=== PATIENT | female | born 1985 | race Caucasian/White ===

== ENCOUNTER 2016-11-22 22:01 | Emergency (ER) | payer SELFPAY ==
[2016-11-22] MEDS ORDERED: NS 0.9% 1000 ML* 1,000 ML IV ONE (22:36)
[2016-11-22 22:44] LABS: Hematocrit 39 % (35-47); Hemoglobin 12.9 g/dl (12.0-16.0); Mean Corpuscular HGB Conc 34 g/dl (31-36); Mean Corpuscular Hemoglobin 31 pg (27-31); Mean Corpuscular Volume 93 fL (80-97); Mean Platelet Volume 9 um3 (7.4-10.4); Red Blood Count 4.13 10^6/ul (4.0-5.4); Red Cell Distribution Width 13 % (10.5-15); White Blood Count 7.7 10^3/ul (3.5-10.8)
[2016-11-22 22:59] LABS: Albumin 4.3 g/dL (3.2-5.2); BUN/Creatinine Ratio 18.9 (8-20); Calcium 9.1 mg/dL (8.6-10.3); EGFR African American 89.4 (>60); EGFR Non-African American 69.5 (>60); Globulin 2.4 g/dL (2-4); Total Bilirubin 0.2 mg/dL (0.2-1.0); Total Protein 6.7 g/dL (6.4-8.9)
[2016-11-22 23:00] LABS: Potassium 3.8 mmol/L (3.5-5.0)
[2016-11-22] MEDS ORDERED: Iohexol 350* (CONTRAST) 500 ML MDV IV ONE (23:41)
[2016-11-22 23:42] LABS: T4 6.86 mcg/mL (6.09-12.23)
[2016-11-22 23:43] LABS: TSH (Thyroid Stimulating Horm) 1.98 mcIU/mL (0.34-5.60)
--- NOTE | 2016-11-23 01:30 | ED ---
Jonah Farris Alok, scribed for Wen Melchor MD on 11/22/16 at 2309 . Complex/Multi-Sys Presentation - HPI Summary HPI Summary: 31F presents to the ED with left sided rib pain, neck pain, left shoulder pain, dizziness and nausea. Pt states she was working out at the gym when afterward she began to feel nauseous and dizzy. Pt states his left sided rib pain has been ongoing for the past few days and is described as an ache/pressure, accompanied by swollen lymph nodes. Pt was given a lidocaine injection this week with no alleviation to her pain. Pt also notes pleurtic CP. Pt states she had a similar episode of left sided rib pain one month ago which subsided eventually. PMHx includes diffuse vertebral. - History Of Current Complaint Chief Complaint: EDGeneral Hx Obtained From: Patient Onset/Duration: Lasting Days, Still Present Severity Currently: Moderate Severity Initially: Moderate Location: Pain At: - neck, left side rib cage, left shoulder Character: Pressure Aggravating Factor(s): exersise today Associated Signs And Symptoms: Positive: Dizziness, Chest Pain, Nausea, Other - left side rip pain, neck pain, left shoulder pain - Allergies/Home Medications Allergies/Adverse Reactions: Allergies Allergy/AdvReac Type Severity Reaction Status Date / Time Latex Allergy Severe severe Verified 11/22/16 22:02 vaginal infection Valacyclovir [From Valtrex] Allergy Swelling Verified 11/22/16 22:02 Of Face,Lips,& Throat SSRIs Allergy "I can't Uncoded 11/22/16 22:02 sit still." PMH/Surg Hx/FS Hx/Imm Hx Endocrine/Hematology History: Denies: Hx Diabetes, Hx Thyroid Disease Cardiovascular History: Denies: Hx Hypertension Respiratory History: Reports: Hx Asthma Denies: Hx Chronic Obstructive Pulmonary Disease (COPD) GI History: Denies: Hx Ulcer - Surgical History Surgery Procedure, Year, and Place: wisdom tooth (one) Infectious Disease History: No Infectious Disease History: Denies: Hx Clostridium Difficile, Hx Hepatitis, Hx Human Immunodeficiency Virus (HIV), Hx of Known/Suspected MRSA, Hx Shingles, Hx Tuberculosis, Hx Known/ Suspected VRE, Hx Known/Suspected VRSA, History Other Infectious Disease, Traveled Outside the [place] in Last 30 Days - Family History Known Family History: Positive: Unknown - Pt is adopted - Social History Occupation: Employed Full-time Lives: Alone Alcohol Use: Occasionally Alcohol Amount: 2 times a week Hx Substance Use: No Substance Use Type: Reports: None Hx Tobacco Use: Yes Smoking Status (MU): Heavy Every Day Tobacco Smoker Type: Cigarettes Amount Used/How Often: 1 PPD Length of Time of Smoking/Using Tobacco: Since Age 17 Have You Smoked in the Last Year: No Review of Systems Negative: Fever Positive: Chest Pain Positive: Nausea Positive: Other - Left side rib pain, neck pain, left shoulder pain Neurological: Other - Dizziness All Other Systems Reviewed And Are Negative: Yes Physical Exam Triage Information Reviewed: Yes Vital Signs On Initial Exam: Initial Vitals Temp Pulse Resp BP Pulse Ox 98.5 F 96 18 138/69 100 11/22/16 22:03 11/22/16 22:03 11/22/16 22:03 11/22/16 22:03 11/22/16 22:03 Vital Signs Reviewed: Yes Appearance: Positive: Well-Appearing, No Pain Distress Skin: Positive: Warm, Skin Color Reflects Adequate Perfusion, Dry Eyes: Positive: EOMI, MARK ENT: Positive: Pharynx normal, TMs normal Neck: Positive: Supple, Nontender Respiratory/Lung Sounds: Positive: Clear to Auscultation, Breath Sounds Present. Negative: Rales, Rhonchi, Wheezes Cardiovascular: Positive: RRR, Other - no gallop. Negative: Murmur, Rub Abdomen Description: Positive: Soft, Other: - No rebound. LUQ tenderness. Negative: Distended, Guarding Bowel Sounds: Positive: Present Musculoskeletal: Positive: Strength/ROM Intact. Negative: Edema Left, Edema Right Neurological: Positive: Sensory/Motor Intact, Alert, Oriented to Person Place, Time, CN Intact II-III Psychiatric: Positive: Affect/Mood Appropriate - Fabio Coma Scale Coma Scale Total: 15 Diagnostics - Vital Signs Vital Signs Temp Pulse Resp BP Pulse Ox 11/22/16 22:27 19 11/22/16 22:03 98.5 F 96 18 138/69 100 - Laboratory Lab Results: Lab Results 11/22/16 Range/Units 22:25 WBC 7.7 (3.5-10.8) 10^3/ul RBC 4.13 (4.0-5.4) 10^6/ul Hgb 12.9 (12.0-16.0) g/dl Hct 39 (35-47) % MCV 93 (80-97) fL MCH 31 (27-31) pg MCHC 34 (31-36) g/dl RDW 13 (10.5-15) % Plt Count 201 (150-450) 10^3/ul MPV 9 (7.4-10.4) um3 Neut % (Auto) 55.5 (38-83) % Lymph % (Auto) 34.1 (25-47) % Chilton % (Auto) 8.0 (1-9) % Eos % (Auto) 1.8 (0-6) % Baso % (Auto) 0.6 (0-2) % Absolute Neuts (auto) 4.2 (1.5-7.7) 10^3/ul Absolute Lymphs (auto) 2.6 (1.0-4.8) 10^3/ul Absolute Monos (auto) 0.6 (0-0.8) 10^3/ul Absolute Eos (auto) 0.1 (0-0.6) 10^3/ul Absolute Basos (auto) 0 (0-0.2) 10^3/ul Absolute Nucleated RBC 0 10^3/ul Nucleated RBC % 0 Result Diagrams: 11/22/16 22:25 11/22/16 22:25 Lab Statement: Any lab studies that have been ordered have been reviewed, and results considered in the medical decision making process. - CT abd/pel CTA CT Interpretation: Positive (See Comments) - IMPRESSION: NO PLMONARY EMBOLISM IDENTIFIED. NO OTHER ACUTE ABNORMALITY SEEN IN THE CHEST. NO INFLAMMATORY PROCESS IDENTIFIED IN THE ABD OR PELVIS. NO ABD MASS, ADENOPATHY OR COLLECTION SEEN. NO EXPLANATION SEEN FOR THIS PATIENT'S ABD PAIN. CT Interpretation Completed By: Radiologist - EKG 8505 Cardiac Rate: NL - 90 bpm EKG Rhythm: Sinus Rhythm EKG Comparison: No Significant Change - From 12/16/12 Complex Multi-Symp Course/Dx Course Of Treatment: 31 yo female who describes luq pain and pleuritic discomfort with weakness sob after working out today. labs and cta chest/abd pelvis neg - Diagnoses Provider Diagnoses: Abdominal pain Discharge - Discharge Plan Condition: Stable Disposition: HOME The documentation as recorded by the Jonah reece Alok accurately reflects the service I personally performed and the decisions made by , Wen Melchor MD.
[2016-11-23 01:41] VITALS: BP 122/64
--- NOTE | 2016-11-23 08:00 | RAD ---
INDICATION: Pleuritic chest pain and right upper quadrant pain. COMPARISON: Comparison is made with a prior chest x-ray study from June 23, 2015. TECHNIQUE: A CT angiogram of the chest and a CT of the abdomen and pelvis was performed with intravenous contrast following intravenous injection of 100 ml of Omnipaque 350 nonionic contrast. Contiguous axial sections were obtained from the lung apices through the symphysis pubis. Images were reconstructed in the coronal and sagittal planes. FINDINGS: CT ANGIOGRAM OF THE CHEST: There is relatively homogeneous opacification of the pulmonary arteries. No intraluminal filling defect or pulmonary embolism is seen. The heart is within normal limits in size. No pericardial effusion is present. The thoracic aorta is normal in caliber. No significant enlarged mediastinal or hilar lymph nodes are seen. There is increased soft tissue density in the anterior mediastinum most consistent with residual thymus tissue. The lungs are clear. There are small areas of pleural thickening along the right major fissure. No pleural effusion is seen. CT OF THE ABDOMEN AND PELVIS: The liver and spleen are normal in size. There is a small area of decreased attenuation present in the medial segment of the left hepatic lobe suggestive of focal fatty infiltration. No other focal abnormalities are seen. No calcified gallstones are noted. The pancreas appears to be within normal limits. The kidneys and adrenal glands are normal in size. No hydronephrosis is seen. No significant focal renal abnormality is seen. The abdominal aorta is normal in caliber. No significant enlarged retroperitoneal lymph nodes are seen. The stomach, small and large bowel appear nondistended. The appendix appears to be within normal limits. There is a moderate amount retained stool. There is no evidence for colitis. No free intraperitoneal air or fluid is seen. There is bilateral spondylolysis at the L5 level. No other focal osseous abnormalities are seen. IMPRESSION: 1. NO EVIDENCE FOR PULMONARY EMBOLISM. 2. NO EVIDENCE FOR ACUTE INTRA-ABDOMINAL ABNORMALITY OR CAUSE FOR THE PATIENT'S ABDOMINAL PAIN IS SEEN. 3. BILATERAL SPONDYLOLYSIS AT THE L5 LEVEL.
== END 2016-11-23 01:43 | disposition home or self-care (01) ==
LOC: ED 22:01
DX: R07.89 Other chest pain (principal); M54.2 Cervicalgia; R42 Dizziness and giddiness; R11.0 Nausea; F17.210 Nicotine dependence, cigarettes, uncomplicated
CPT/HCPCS: 36415; 71275; 74177; 80053; 84436; 84443; 84702; 85025; 93005; 99282; Q9967

== ENCOUNTER 2016-12-26 14:58 | Emergency (ER) | payer OTHER ==
[2016-12-26 16:32] VITALS: BP 112/70
--- NOTE | 2016-12-26 16:58 | UC ---
Eye Complaint HPI - HPI Summary HPI Summary: Gradually increasing pain and pressure behind/in R eye. Pain is constant, worse in recent days. Denies major visual disturbance though having some difficuty with night vision. No drainage or itching. Has tried taking NSAIDS and muscle relaxer s relief. Many vague symptoms of activity intolerance, light-headedness , occasionally BLE weakness. Pain gets worse with smoking cigarettes. 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 - History of Current Complaint Chief Complaint: UCEye Stated Complaint: RIGHT EYE ISSUE Time Seen by Provider: 12/26/16 16:13 Hx Obtained From: Patient Hx Last Menstrual Period: 12/21/16 ?: No Onset/Duration: Gradual Onset, Lasting Weeks Timing: Constant Severity Initially: Mild Severity Currently: Moderate Location of Injury: Globe, Other - pain in R anglican and above R ear Character: Dull Aggravating Factor(s): Other - smoking cigarettes Associated Signs And Symptoms: Positive: Photophobia. Negative: Vision Impairment Bilateral, Fever, Swelling - Allergies/Home Medications Allergies/Adverse Reactions: Allergies Allergy/AdvReac Type Severity Reaction Status Date / Time Latex Allergy Severe severe Verified 12/26/16 16:12 vaginal infection Valacyclovir [From Valtrex] Allergy Swelling Verified 12/26/16 16:12 Of Face,Lips,& Throat SSRIs Allergy "I can't Uncoded 12/26/16 16:12 sit still." Home Medications: Home Medications Magnesium Oxide TAB* [MagOx 400 TAB*] 400 mg PO DAILY 12/26/16 [History Confirmed 12/26/16] PMH/Surg Hx/FS Hx/Imm Hx Respiratory History: Asthma - Surgical History Surgical History: Yes Surgery Procedure, Year, and Place: wisdom tooth (one) - Family History Known Family History: Positive: None, Unknown - Pt is adopted, Hypertension - Social History Lives: With Family Alcohol Use: Occasionally Alcohol Amount: 2 times a week Substance Use Type: None Smoking Status (MU): Heavy Every Day Tobacco Smoker Type: Cigarettes Amount Used/How Often: 1 PPD Length of Time of Smoking/Using Tobacco: Since Age 17 Have You Smoked in the Last Year: No Review of Systems Constitutional: Negative Skin: Negative Eyes: Photophobia ENT: Negative Respiratory: Negative Cardiovascular: Negative Gastrointestinal: Negative Genitourinary: Negative Motor: Negative Neurovascular: Negative Musculoskeletal: Negative Neurological: Headache Psychological: Negative All Other Systems Reviewed And Are Negative: Yes Physical Exam Triage Information Reviewed: Yes Appearance: Well-Appearing, Well-Nourished Vital Signs: Initial Vital Signs Temp 98.5 F 12/26/16 16:08 Pulse 80 12/26/16 16:08 Resp 17 12/26/16 16:08 BP 112/70 12/26/16 16:08 Pulse Ox 97 12/26/16 16:08 Eye Exam: Other - PERRL, EOM-I, limited fundoscopic exams normal b/l Eyes: Positive: Conjunctiva Clear ENT: Positive: Normal ENT inspection, Hearing grossly normal, Pharynx normal, TMs normal, Other: - mild tenderness R anglican Dental Exam: Normal Neck: Positive: Supple, Nontender, No Lymphadenopathy Respiratory Exam: Normal Respiratory: Positive: Chest non-tender, Lungs clear, Normal breath sounds, No respiratory distress, No accessory muscle use Cardiovascular Exam: Normal Cardiovascular: Positive: RRR, No Murmur Musculoskeletal Exam: Normal Neurological Exam: Normal Neurological: Positive: Alert Psychological Exam: Normal Skin Exam: Normal Eye Complaint Course/Dx - Differential Dx/Diagnosis Provider Diagnoses: R eye pain. R-sided headache Discharge - Discharge Plan Condition: Stable Disposition: HOME Patient Education Materials: Eye Pain (ED) Referrals: Alia Damon MD [Medical Doctor] - 3 Days Thaddeus Hung MD [Primary Care Provider] - 5 Days Additional Instructions: As we discussed, there are many possible causes of your pain. You may need imaging or you may need to see a new specialist such as a neurologist. I have run some bloodwork for an unlikely condition in which a blood vessel in your head becomes inflamed. Please see an human resources district manager as soon as possible and follow up with your primary care office next week.
[2016-12-27 14:13] LABS: Hematocrit 41 % (35-47); Hemoglobin 13.6 g/dl (12.0-16.0); Mean Corpuscular HGB Conc 33 g/dl (31-36); Mean Corpuscular Hemoglobin 32 pg (27-31); Mean Corpuscular Volume 97 fL (80-97); Mean Platelet Volume 10 um3 (7.4-10.4); Red Blood Count 4.26 10^6/ul (4.0-5.4); Red Cell Distribution Width 13 % (10.5-15); White Blood Count 6.9 10^3/ul (3.5-10.8)
[2016-12-27 14:19] LABS: Add Diff/Slide Review? Slide Review Added; Comments Flag Yes
[2016-12-27 15:08] LABS: Erythrocyte Sed Rate 7 mm/Hr (0-14)
--- NOTE | 2016-12-28 07:06 | ED ---
Progress - Progress Note Progress Note: CBC (-), follow up with ER/PCP if worse. Course/Dx - Diagnoses Provider Diagnoses: Eye swelling
== END 2016-12-26 17:01 | disposition home or self-care (01) ==
LOC: UCCORT 14:58
DX: H57.11 Ocular pain, right eye (principal); R51 Headache; J45.909 Unspecified asthma, uncomplicated; F17.210 Nicotine dependence, cigarettes, uncomplicated
CPT/HCPCS: 36415; 85025; 85652; 99212; G0463

== ENCOUNTER 2017-05-23 07:54 | Emergency (ER) | payer OTHER ==
[2017-05-23 08:08] VITALS: BP 111/76
--- NOTE | 2017-05-23 08:20 | UC ---
Complaint Female HPI - HPI Summary HPI Summary: 32 y/o female presents to the urgent care c/o a paper cut in her clitoris for the past 3 days. Pt reports she is sexually active and it has made it worse. Now it swollen, red and mild yellowish discharge. It hopson and painful on urination. Pin is 7/10 with touch. She is flying to [facility] for her Wedding and she wants to make sure she gets treatment. She has her period today. She has applied aquafor topical cream w/o any relief. She would like to get a Rx for BV since she recently change soap and was getting a vaginal discharge with fishy order. Pt has Hx of Herpes. Pt denies abdominal pain, N/V/D , frequency on urination, lower back pain. - History Of Current Complaint Chief Complaint: UCGU Stated Complaint: PERSONAL Time Seen by Provider: 05/23/17 08:09 Hx Obtained From: Patient Hx Last Menstrual Period: 05/23/17 ?: No Onset/Duration: Gradual Onset, Lasting Days - 3 days, Still Present, Worse Since - last night Timing: Constant Severity Initially: Mild Severity Currently: Moderate Pain Intensity: 7 - with touch Pain Scale Used: 0-10 Numeric Character: Burning, Tearing Aggravating Factor(s): Urination Alleviating Factor(s): Nothing Associated Signs And Symptoms: Positive: Vaginal Discharge, Genital Swelling. Negative: Fever, Back Pain, Nausea - Risk Factors Ectopic Risk Factor: Negative - Allergies/Home Medications Allergies/Adverse Reactions: Allergies Allergy/AdvReac Type Severity Reaction Status Date / Time Latex Allergy Severe severe Verified 05/23/17 08:01 vaginal infection Valacyclovir [From Valtrex] Allergy Swelling Verified 05/23/17 08:01 Of Face,Lips,& Throat SSRIs Allergy "I can't Uncoded 05/23/17 08:01 sit still." PMH/Surg Hx/FS Hx/Imm Hx Previously Healthy: Yes Other Endocrine History: Fibromyalgia Respiratory History: Asthma Psychological History: Anxiety, Depression - Surgical History Surgical History: Yes Surgery Procedure, Year, and Place: wisdom tooth (one) - Family History Known Family History: Positive: Hypertension - Social History Occupation: Employed Full-time Lives: With Family Alcohol Use: Occasionally Alcohol Amount: 2 times a week Substance Use Type: None Smoking Status (MU): Heavy Every Day Tobacco Smoker Type: Cigarettes Amount Used/How Often: 1/2 PPD Length of Time of Smoking/Using Tobacco: Since Age 17 Have You Smoked in the Last Year: No Review of Systems Constitutional: Negative Skin: Rash - a paper cut in her clitoris taht got infected Eyes: Negative ENT: Negative Respiratory: Negative Cardiovascular: Negative Genitourinary: Vaginal/Penile Discharge, Other - burining on urination Motor: Negative Neurovascular: Negative Musculoskeletal: Negative Neurological: Negative Psychological: Negative Is Patient Immunocompromised?: No All Other Systems Reviewed And Are Negative: Yes Physical Exam Triage Information Reviewed: Yes Vital Signs: Initial Vital Signs Temp 98.2 F 05/23/17 08:03 Pulse 78 05/23/17 08:03 Resp 18 05/23/17 08:03 BP 111/76 05/23/17 08:03 Pulse Ox 100 05/23/17 08:03 - Additional Comments Vital signs: reviewed General: Well developed, well nourished female sitting in the examining table w/ o any apparent distress Head: Normocephalic, no lesions. Eyes: PERRLA, EOM's full, conjunctivae clear, fundi grossly normal. Ears: EAC's clear, TM's normal. Nose: Mucosa normal, no obstruction. Throat: Clear, no exudates, no lesions. Neck: Supple, no masses, no thyromegaly, no bruits. Chest: Lungs clear, no rales, no rhonchi, no wheezes. Heart: RR, no murmurs, no rubs, no gallops. Abdomen: Soft, no tenderness, no masses, BS normal. : Normal, no lesions, no discharge, no hernias noted. Pelvic: Only examination of the external genitalia since Pt declined Pelvic since she has her menstrual period. Positive discrete superficial linear laceration above the clitoris with surrounding erythema and yellowish discharge about 4mm in size, tender to palpation. no Speculum exam pt has a tampon inserted. Rectal: No lesions, no hemorrhoids, Back: Normal curvature, no tenderness. Extremities: FROM, no deformities, no edema, no erythema. Neuro: Physiological, no localizing findings. Skin: Normal, no rashes, no lesions noted. Complaint Female Dx - Course Course Of Treatment: 32 y/o female presents to the urgent care c/o a paper cut in her clitoris for the past 3 days. Pt reports she is sexually active and it has made it worse. Now it swollen, red and mild yellowish discharge. It hopson and painful on urination. Pin is 7/10 with touch. She is flying to [facility] for her Wedding and she wants to make sure she gets treatment. She has her period today. She has applied aquafor topical cream w/o any relief. She would like to get a Rx for BV since she recently change soap and was getting a vaginal discharge with fishy order. Pt has Hx of Herpes. Pt denies abdominal pain, N/V/D, frequency on urination, lower back pain. Hx obtained. Pt with a discrete laceration above clitoris mildly infected on examination. Ua ordered: negative. Pt Rx Keflex PO and Bacitracin topical cream to alleviate symptoms. Pt Also requested Tx for BV. Pt Rx Metronidazole Gel intravaginal to use after menstrual cycle. Advised If symptoms do not improve to return to the urgent care or f/u with her PCP. Pt understood and agreed with plan of care. - Differential Dx/Diagnosis Differential Diagnosis/HQI/PQRI: Cervicitis, Pelvic Inflammatory Disease, , Sexually Transmitted Disease, Urinary Tract Infection, Other - foliculitis Provider Diagnoses: 1- Acute bacterial rash. 2- Bacterial vaginosis Discharge - Discharge Plan Condition: Stable Disposition: HOME Prescriptions: Bacitracin OINTMENT* 1 applic TOPICAL TID #1 tube Cephalexin CAP* [Keflex CAP*] 500 mg PO QID #28 cap metroNIDAZOLE VAGINAL 0.75%* 1 applic VAGINAL BEDTIME #1 victoria Patient Education Materials: Bacterial Vaginosis (ED), Acute Rash (ED) Referrals: Thaddeus Hung MD [Primary Care Provider] - If Needed Additional Instructions: 1-Please take Keflex PO as directed and apply topical antibiotic on affected area. Avoid sexual intercourse until symptoms resolve 2- Use the Metronidazol gel after you menstrual cycle is over if you still have the vaginal discharge 3- If symptoms do not improve please return to the urgent care or f/u with her PCP.
== END 2017-05-23 08:50 | disposition home or self-care (01) ==
LOC: UCEAST 07:54
DX: S30.814A Abrasion of vagina and vulva, initial encounter (principal); B96.89 Other specified bacterial agents as the cause of diseases classified elsewhere; X58.XXXA Exposure to other specified factors, initial encounter; Y93.9 Activity, unspecified; Y92.9 Unspecified place or not applicable; Y99.9 Unspecified external cause status; N76.0 Acute vaginitis; Z72.0 Tobacco use; Z72.89 Other problems related to lifestyle
CPT/HCPCS: 81003; 99212; G0463

== ENCOUNTER 2017-06-28 08:01 | Emergency (ER) | payer OTHER ==
[2017-06-28 08:18] VITALS: BP 128/73
--- NOTE | 2017-06-28 08:29 | UC ---
Eye Complaint HPI - HPI Summary HPI Summary: right eye redness and swelling x 3 days mild eye pain , no change in vision - History of Current Complaint Chief Complaint: UCEye Stated Complaint: RIGHT EYE COMPLAINT Time Seen by Provider: 06/28/17 08:11 Hx Obtained From: Patient Hx Last Menstrual Period: 06/17/17 Onset/Duration: Gradual Onset, Lasting Days - 5, Still Present Timing: Constant Severity Initially: Moderate Severity Currently: Moderate Location of Injury: Eye Lid (upper) - right Aggravating Factor(s): Blinking Alleviating Factor(s): Nothing Associated Signs And Symptoms: Positive: Drainage (Clear) - right eye, Drainage (Purulent) - right eye. Negative: Photophobia - Allergies/Home Medications Allergies/Adverse Reactions: Allergies Allergy/AdvReac Type Severity Reaction Status Date / Time Latex Allergy Severe severe Verified 06/28/17 08:18 vaginal infection Valacyclovir [From Valtrex] Allergy Swelling Verified 06/28/17 08:18 Of Face,Lips,& Throat SSRIs Allergy "I can't Uncoded 06/28/17 08:18 sit still." PMH/Surg Hx/FS Hx/Imm Hx Previously Healthy: Yes - Surgical History Surgical History: Yes Surgery Procedure, Year, and Place: wisdom tooth (one) - Family History Known Family History: Positive: None, Unknown - Pt is adopted, Hypertension - Social History Alcohol Use: None Alcohol Amount: 2 times a week Substance Use Type: None Smoking Status (MU): Heavy Every Day Tobacco Smoker Type: Cigarettes Amount Used/How Often: 1/2 PPD Length of Time of Smoking/Using Tobacco: Since Age 17 Have You Smoked in the Last Year: No Review of Systems Constitutional: Negative Skin: Negative Eyes: Drainage, Eye Redness ENT: Negative Respiratory: Negative Cardiovascular: Negative Is Patient Immunocompromised?: No All Other Systems Reviewed And Are Negative: Yes Physical Exam Triage Information Reviewed: Yes Appearance: Well-Appearing, No Pain Distress, Well-Nourished Vital Signs: Initial Vital Signs Temp 98.9 F 06/28/17 08:11 Pulse 67 06/28/17 08:11 Resp 16 06/28/17 08:11 BP 128/73 06/28/17 08:11 Pulse Ox 100 06/28/17 08:11 Eye Exam: Normal Eyes: Positive: Other: - stye right upper eyelid , ENT: Positive: Normal ENT inspection, Hearing grossly normal, Pharynx normal Neck exam: Normal Neck: Positive: Supple, Nontender, No Lymphadenopathy Respiratory: Positive: Chest non-tender, Lungs clear, Normal breath sounds, No respiratory distress Cardiovascular: Positive: RRR, No Murmur, Pulses Normal Skin Exam: Normal Eye Complaint Course/Dx - Differential Dx/Diagnosis Provider Diagnoses: stye right upper eyelid Discharge - Discharge Plan Condition: Stable Disposition: HOME Prescriptions: Tobramycin 0.3% OPHTH.SABA* 1 drop RIGHT EYE Q4H #1 btl Patient Education Materials: Umer (ED) Referrals: Thaddeus Hung MD [Primary Care Provider] - If Needed
== END 2017-06-28 08:29 | disposition home or self-care (01) ==
LOC: UCCORT 08:01
DX: H00.021 Hordeolum internum right upper eyelid (principal); Z72.89 Other problems related to lifestyle; Z72.0 Tobacco use
CPT/HCPCS: 99212; G0463

== ENCOUNTER 2017-07-18 09:32 | Emergency (ER) | payer OTHER ==
[2017-07-18 12:11] VITALS: BP 113/80
--- NOTE | 2017-07-26 07:52 | UC ---
Murali Farris Nikita, scribed for Silvia Brian DO on 07/18/17 at 1036 . Neck Pain HPI - HPI Summary HPI Summary: This patient is a 32 year old F presenting to [facility] with a chief complaint of neck pain since 1 week ago. The CC is described as constant, sharp, radiating down to the mid back, bilateral UE, bilateral shoulders, and the chest. The patient rates the pain 8/10 in severity. Symptoms aggravated by position and movement. Symptoms alleviated by nothing. Patient reports anxiety, stress, nausea, blurred vision (worse on the R, x3 days ago), severe REINA, acid reflux ( x5 days ago), plugged ears, regular and intermittent panic attacks for the past few weeks, diaphoresis, difficulty speaking, numbness/tingling and intermittant weakness in the bilateral UE (worse on the R), dizziness ( aggravated by movement of the head), brain fog, CP, SOB, pelvic pain ( intermittent), nasal drainage, eye drainage, cough (x2 days ago), and abdominal pain. Denies sore throat and sinus congestion. Pts cycle was a few days ago for one day that was of a different color (brown). - History of Current Complaint Chief Complaint: UCGeneralIllness Stated Complaint: NECK, SHOULDER AND ARM PAIN Time Seen by Provider: 07/18/17 10:14 Hx Obtained From: Patient Hx Last Menstrual Period: 07/14/17 Onset/Duration Of Injury/Symptoms: Weeks - 1 week ago Onset/Duration: Sudden Onset, Lasting Weeks, Still Present Severity: Moderate Pain Intensity: 8 Pain Scale Used: 0-10 Numeric Location: Discrete At: - neck, Radiates To: - to the mid back, bilateral shoulders, UE, and to the chest Character: Sharp Aggravating Factors: Position, Movement Alleviating Factors: Nothing Associated Signs & Symptoms: Positive: Headache - Patient reports anxiety, stress, nausea, blurred vision (worse on the R, x3 days ago), REINA, acid reflux ( x5 days ago), plugged ears, regular and intermittent panic attacks for the past few weeks, diaphoresis, difficulty speaking, numbness and tingling in the bilateral UE (worse on the R), dizziness (aggravated by movement of the head), brain fog, CP, SOB, pelvic pain (intermittent), nasal drainage, eye drainage, cough (x2 days ago), and abdominal pain. Denies sore throat and sinus congestion. - Allergies/Home Medications Allergies/Adverse Reactions: Allergies Allergy/AdvReac Type Severity Reaction Status Date / Time MS Latex [Latex] Allergy Severe severe Verified 07/23/17 12:06 vaginal infection MS Valacyclovir Allergy Swelling Verified 07/23/17 12:06 [From Valtrex] Of Face,Lips,& Throat SSRIs Allergy "I can't Uncoded 07/23/17 12:06 sit still." Home Medications: Home Medications ALPRAZolam TAB* [Xanax TAB*] 07/18/17 [History] Amitriptyline TAB* [Elavil TAB*] 07/18/17 [History] Ibuprofen TAB* [Advil TAB*] 07/18/17 [History] Lysine 07/18/17 [History] PMH/Surg Hx/FS Hx/Imm Hx Respiratory History: Asthma - pediatric, Bronchitis, Other Other Respiratory History: No COPD Neurological History: Other Other Neurological History: REINA Psychological History: Anxiety - Surgical History Surgical History: Yes Surgery Procedure, Year, and Place: wisdom tooth (one) - Family History Known Family History: Positive: Unknown - Pt is adopted, Hypertension - Social History Alcohol Use: None Alcohol Amount: 2 times a week Substance Use Type: Prescribed Substance Use Comment - Amount & Last Used: xanax and amitriptline Smoking Status (MU): Heavy Every Day Tobacco Smoker Type: Cigarettes Amount Used/How Often: 1/2 PPD Length of Time of Smoking/Using Tobacco: Since Age 17 Have You Smoked in the Last Year: No Household Exposure Type: Cigarettes Cessation Counseling: Patient Advised to Stop Review Of Systems Constitutional: Positive: Other - diaphoresis Eyes: Positive: Blurred Vision - worse on the R, x3 days ago, Drainage ENT: Positive: Ear Ache - "plugged ears, Other - nasal drainage, neck pain that radiates down to the mid back, bilateral shoulders, UE, and the chest; denies sinus congestion and sore throat Respiratory: Positive: Shortness Of Breath, Cough - x2 days ago Cardiovascular: Positive: Chest Pain Gastrointestinal: Positive: Abdominal Pain, Nausea, Other - acid reflux (x5 days ago) Genitourinary: Positive: Other - pelvic pain (intermittent) Neurological: Positive: Headache, Other - numbness and tingling in the bilateral UE (worse on the R), dizziness (aggravated by movement of the head), difficulty speaking, brain fog Psychological: Positive: Anxious, Other - stress, regular and intermittent panic attacks for the past few weeks All Other Systems Reviewed And Are Negative: Yes Physical Exam Triage Information Reviewed: Yes Appearance: Well-Appearing, No Pain Distress, Well-Nourished Vital Signs: Initial Vital Signs Temp 98.6 F 07/18/17 09:40 Pulse 92 07/18/17 09:40 Resp 16 07/18/17 09:40 BP 128/81 07/18/17 09:40 Pulse Ox 100 07/18/17 09:40 Vital Signs Reviewed: Yes Eyes: Positive: Conjunctiva Clear. Negative: Discharge ENT: Positive: Hearing grossly normal. Negative: Muffled voice, Hoarse voice Neck exam: Normal Neck: Positive: Supple Respiratory: Positive: Lungs clear, Normal breath sounds, No respiratory distress, No accessory muscle use Cardiovascular: Positive: RRR, No Murmur Musculoskeletal Exam: Normal Neurological: Positive: Alert, Muscle Tone Normal, Other: - A&Ox3, CN II-XII INTACT, SENSORY MOTOR INTACT, REFLEXES INTACT, NO CEREBELLAR SIGNS, FACIAL SYMMETRY, NEGATIVE ROMBERG, NORMAL GAIT Psychological Exam: Normal Psychological: Positive: Age Appropriate Behavior Skin Exam: Normal, Other - Warm, dry, and normal color Re-Evaluation - Re-Evaluation First Eval Re-Evaluation Time: 11:50 Second Eval Re-Evaluation Time: 12:00 Neck Pain Course/Dx - Course Course Of Treatment: Patient will be transferred to the ED. The patient is agreeable with this plan. Medications reviewed. Allergies reviewed. High blood pressure noted. The patient has been encouraged to quit smoking. - Differential Dx/Diagnosis Differential Dx/HQI/PQRI: Other - Elevated blood pressure without diagnosis of hypertension. Provider Diagnoses: neck pain, visual disturbance, headache, dizziness, anxiety , Elevated blood pressure without diagnosis of hypertension. Discharge - Discharge Plan Condition: Stable Disposition: [facility] Referrals: Thaddeus Hung MD [Primary Care Provider] - The documentation as recorded by the Murali reece Nikita accurately reflects the service I personally performed and the decisions made by , Silvia Brian DO.
== END 2017-07-18 12:35 | disposition short-term general hospital (02) ==
LOC: UCEAST 09:32
DX: M54.2 Cervicalgia (principal); H53.9 Unspecified visual disturbance; R51 Headache; R42 Dizziness and giddiness; F41.9 Anxiety disorder, unspecified; R03.0 Elevated blood-pressure reading, without diagnosis of hypertension; Z32.02 Encounter for pregnancy test, result negative; F17.210 Nicotine dependence, cigarettes, uncomplicated
CPT/HCPCS: 81025; 99213; G0463

== ENCOUNTER 2017-07-18 12:55 | Emergency (ER) | payer OTHER ==
[2017-07-18] MEDS ORDERED: Ketorolac INJ* 30 MG/ML 1 ML VIAL IM ONE (13:48)
[2017-07-18] MEDS ORDERED: Methocarbamol TAB* 500 MG PO ONE (13:48)
[2017-07-18] MEDS ORDERED: LORazepam TAB(*) 1 MG PO ONE (13:48)
--- NOTE | 2017-07-18 14:48 | RAD ---
INDICATION: Neck and shoulder pain. COMPARISON: No relevant prior exams available on the [facility] for comparison. TECHNIQUE: Multidetector CT images foramen magnum to lung apices without contrast. Multiplanar reformation. REPORT: Straightening of the cervical spine. Negative for facet subluxation at any level. 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 Negative for fracture or suspicious focal osseous lesion. Unremarkable paravertebral soft tissues. No significant degenerative spondylosis or facet joint osteoarthritis evident. Degenerative arthropathy noted at the T1 RIGHT costovertebral junction. IMPRESSION: 1. No evidence for traumatic cervical spine injury. 2. Straightening relative to normal cervical lordosis. 3. 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 4. 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
[2017-07-18 15:41] VITALS: BP 112/78
--- NOTE | 2017-07-19 10:53 | ED ---
Rain Farris Edward, scribed for Josiah Martinez MD on 07/18/17 at 1328 . Complex/Multi-Sys Presentation - HPI Summary HPI Summary: 32 y/o female presents to the ED c/o severe neck pain at the back of the neck with radiation to bilateral shoulders and arms. Pt states gets panic attacks every so often. Associated sx: R side eye blurriness for the past 3 days, sleep disturbance. Pt flew back from [facility] 2 weeks ago. [facility] 07/14/2017. Pt took a Xanax at 08:00 this morning. Pt states she has been recently stressed. - History Of Current Complaint Chief Complaint: EDGeneral Time Seen by Provider: 07/18/17 13:26 Hx Obtained From: Patient Onset/Duration: Still Present Timing: Constant Severity Initially: Severe Location: Pain At: - neck Associated Signs And Symptoms: Positive: Other - neck pain, R eye blurriness, panic attack - Allergies/Home Medications Allergies/Adverse Reactions: Allergies Allergy/AdvReac Type Severity Reaction Status Date / Time MS Latex [Latex] Allergy Severe severe Verified 06/28/17 08:18 vaginal infection MS Valacyclovir Allergy Swelling Verified 06/28/17 08:18 [From Valtrex] Of Face,Lips,& Throat SSRIs Allergy "I can't Uncoded 06/28/17 08:18 sit still." PMH/Surg Hx/FS Hx/Imm Hx Previously Healthy: No Endocrine/Hematology History: Denies: Hx Diabetes, Hx Thyroid Disease Cardiovascular History: Denies: Hx Hypertension, Hx Pacemaker/ICD Respiratory History: Reports: Hx Asthma - as a child Denies: Hx Chronic Obstructive Pulmonary Disease (COPD) GI History: Denies: Hx Ulcer History: Denies: Hx Dialysis, Hx Renal Disease Sensory History: Denies: Hx Hearing Aid Psychiatric History: Denies: Hx Panic Disorder - Surgical History Surgery Procedure, Year, and Place: wisdom tooth (one) - Immunization History Date of Influenza Vaccine: 05/2017 Immunizations Up to Date: Yes Infectious Disease History: No Infectious Disease History: Denies: Hx Clostridium Difficile, Hx Hepatitis, Hx Human Immunodeficiency Virus (HIV), Hx of Known/Suspected MRSA, Hx Shingles, Hx Tuberculosis, Hx Known/ Suspected VRE, Hx Known/Suspected VRSA, History Other Infectious Disease, Traveled Outside the [place] in Last 30 Days - Family History Known Family History: Positive: Unknown - Pt is adopted, Hypertension - Social History Alcohol Use: None Alcohol Amount: 2 times a week Hx Substance Use: No Substance Use Type: Reports: Prescribed Substance Use Comment - Amount & Last Used: xanax and amitriptline Hx Tobacco Use: Yes Smoking Status (MU): Heavy Every Day Tobacco Smoker Type: Cigarettes Amount Used/How Often: 1/2 PPD Length of Time of Smoking/Using Tobacco: Since Age 17 Have You Smoked in the Last Year: No Review of Systems Constitutional: Negative Positive: Blurred Vision - R side ENT: Negative Cardiovascular: Negative Respiratory: Negative Gastrointestinal: Negative Genitourinary: Negative Positive: Myalgia - back of neck pain Skin: Negative Neurological: Negative Positive: Anxious All Other Systems Reviewed And Are Negative: Yes Physical Exam - Summary Physical Exam Summary: VITAL SIGNS: Reviewed. GENERAL: Patient is a well-developed and nourished female who is lying comfortable in the stretcher. Patient is not in any acute respiratory distress. HEAD AND FACE: No signs of trauma. No ecchymosis, hematomas or skull depressions. No sinus tenderness. EYES: PERRLA, EOMI x 2, No injected conjunctiva, no nystagmus. EARS: Hearing grossly intact. Ear canals and tympanic membranes are within normal limits. MOUTH: Oropharynx within normal limits. NECK: Supple, trachea is midline, no adenopathy, no JVD, no carotid bruit, no c- spine tenderness, neck with full ROM. CHEST: Symmetric, no tenderness at palpation LUNGS: Clear to auscultation bilaterally. No wheezing or crackles. CVS: Regular rate and rhythm, S1 and S2 present, no murmurs or gallops appreciated. ABDOMEN: Soft, non-tender. No signs of distention. No rebound no guarding, and no masses palpated. Bowel sounds are normal. EXTREMITIES: FROM in all major joints, no edema, no cyanosis or clubbing. MUSCULOSKELETAL: Paraspinal muscle tenderness at the C-spine. NEURO: Alert and oriented x 3. No acute neurological deficits. Speech is normal and follows commands. SKIN: Dry and warm PSYCH: anxious. Triage Information Reviewed: Yes Vital Signs On Initial Exam: Initial Vitals Temp Pulse Resp BP Pulse Ox 98.1 F 69 17 120/66 100 07/18/17 12:57 07/18/17 12:57 02/11/18 12:57 07/18/17 12:57 07/18/17 12:57 Vital Signs Reviewed: Yes Diagnostics - Vital Signs Vital Signs Temp Pulse Resp BP Pulse Ox 07/18/17 12:57 98.1 F 69 17 120/66 100 - Laboratory Lab Statement: Any lab studies that have been ordered have been reviewed, and results considered in the medical decision making process. - CT NECK CT CT Interpretation: No Acute Changes - 1. No evidence for traumatic cervical spine injury. 2. Straightening relative to normal cervical lordosis. 3. 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 4. 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 CT Interpretation Completed By: Radiologist - ED PHYSICIAN [employer]IEWS [employer]REES Complex Multi-Symp Course/Dx Assessment/Plan: 32 y/o female presents to the ED c/o severe neck pain at the back of the neck with radiation to bilateral shoulders and arms. Pt states she had a panic attack 2 weeks ago. Associated sx: R side eye blurriness for the past 3 days, sleep disturbance. Pt flew back from [facility] 2 weeks ago. [facility] 12/2017. Pt took a Xanax at 08:[address] SHOWS 1. No evidence for traumatic cervical spine injury. 2. Straightening relative to normal cervical lordosis. 3. 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 4. 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 Test results without significant abnormalities. CT negative for acute fracture dislocation. I obtained the test results from [place]; she had blood work done today including TSH and it was negative. Pt very anxious; given Ativan for anxiety, toradol and norflex for pain and stiffness and her sx improved. At this point I discussed the test results and plan with the pt and instructed her to f/u pcp; she was also given a referral for psychiatrist to control her anxiety. At this point pt understands and agrees. Pt will be d/c home, f/u pcp. Pt is hemodynamically stable, A&Ox3 - Diagnoses Provider Diagnoses: Anxiety, Neck pain Discharge - Discharge Plan Condition: Stable Disposition: HOME Prescriptions: Methocarbamol TAB* [Robaxin 500 MG TAB*] 750 mg PO TID PRN #12 tab PRN Reason: Pain Naproxen [Naproxen 500 mg] 500 mg PO Q8H PRN #20 tab PRN Reason: Pain Patient Education Materials: Neck Pain (ED) Referrals: Thaddeus Hung MD [Primary Care Provider] - 4 Days (PLEASE F/U IN 3-5 DAYS) Kirill Watson MD [Medical Doctor] - 4 Days (PLEASE F/U IN 3-5 DAYS WITH THE PSYCHIATRIST) Additional Instructions: PLEASE RETURN TO THE ED FOR WORSENING OF SYMPTOMS The documentation as recorded by the Rain reece Edward accurately reflects the service I personally performed and the decisions made by Juan treadwell Walter, MD.
== END 2017-07-18 15:40 | disposition home or self-care (01) ==
LOC: ED 12:55
DX: M54.2 Cervicalgia (principal); F41.9 Anxiety disorder, unspecified; F17.210 Nicotine dependence, cigarettes, uncomplicated
CPT/HCPCS: 72125; 99283; A9270-GY; J1885

== ENCOUNTER 2017-10-09 17:19 | Emergency (ER) | payer OTHER ==
[2017-10-09 18:24] VITALS: BP 109/71
--- NOTE | 2017-10-09 18:44 | UC ---
Complaint Female HPI - HPI Summary HPI Summary: C/O blood in the urine since last night. Urgency and frequency. - History Of Current Complaint Chief Complaint: UCGU Stated Complaint: URINARY Time Seen by Provider: 10/09/17 18:38 Hx Obtained From: Patient Hx Last Menstrual Period: 09/30/17 ?: No Onset/Duration: Sudden Onset, Lasting Days - 1 Timing: Constant Severity Initially: Mild Severity Currently: Moderate Pain Intensity: 5 Character: Cramping Aggravating Factor(s): Urination Associated Signs And Symptoms: Positive: Back Pain Related Hx: - 3, Para - 1 - Allergies/Home Medications Allergies/Adverse Reactions: Allergies Allergy/AdvReac Type Severity Reaction Status Date / Time latex Allergy See Comment Verified 10/09/17 18:14 valacyclovir Allergy Swelling Verified 10/09/17 18:14 Of Face,Lips,& Throat SSRIs Allergy "I can't Uncoded 10/09/17 18:14 sit still." Home Medications: Home Medications Ketorolac INJ* [Toradol INJ*] 30 mg .SEE ORDER ONCE 10/09/17 [History Confirmed 10/09/17] clonazePAM TAB(*) [Klonopin TAB(*)] 0.75 mg PO BID 10/09/17 [History Confirmed 10/09/17] PMH/Surg Hx/FS Hx/Imm Hx - Additional Past Medical History 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 Respiratory History: Asthma - Surgical History Surgical History: Yes Surgery Procedure, Year, and Place: wisdom tooth (one) - Family History Known Family History: Positive: None, Unknown - Pt is adopted, Hypertension - Social History Occupation: Employed Part-time Lives: With Family Alcohol Use: None Alcohol Amount: 2 times a week Substance Use Type: Prescribed Substance Use Comment - Amount & Last Used: clonazepamand amitriptline Smoking Status (MU): Heavy Every Day Tobacco Smoker Type: Cigarettes, eCigarettes Amount Used/How Often: e cigarette- 1 regular cigarette Length of Time of Smoking/Using Tobacco: Since Age 17 Have You Smoked in the Last Year: No Household Exposure Type: Cigarettes Review of Systems Genitourinary: Hematuria, Frequency, Urgency Psychological: Anxious Is Patient Immunocompromised?: No All Other Systems Reviewed And Are Negative: Yes Physical Exam Triage Information Reviewed: Yes Appearance: Well-Appearing, No Pain Distress, Well-Nourished Vital Signs: Initial Vital Signs Temp 98.8 F 10/09/17 18:17 Pulse 94 10/09/17 18:17 Resp 20 10/09/17 18:17 BP 109/71 10/09/17 18:17 Pulse Ox 100 10/09/17 18:17 Vital Signs Reviewed: Yes Eyes: Positive: Conjunctiva Clear Neck exam: Normal Neck: Positive: Supple Respiratory Exam: Normal Cardiovascular Exam: Normal Abdomen Description: Negative: Nontender - suprapubic tenderness, CVA Tenderness (R), CVA Tenderness (L) Bowel Sounds: Positive: Present Musculoskeletal Exam: Normal Neurological Exam: Normal Psychological Exam: Normal Skin Exam: Normal Complaint Female Dx - Differential Dx/Diagnosis Differential Diagnosis/HQI/PQRI: Cervicitis, Ureteral Stone, Urinary Tract Infection Provider Diagnoses: Acute hemorrhagic cystitis Discharge - Sign-Out/Discharge Documenting (check all that apply): Discharge/Admit/Transfer - Discharge Plan Condition: Stable Disposition: HOME Prescriptions: Phenazopyridine 200 mg (NF) [Pyridium 200 MG tab *] 200 mg PO TID PRN #6 tab PRN Reason: UTI symptoms Sulfamethox/Trimethoprim DS* [Bactrim DS 800/160 TAB*] 1 tab PO BID #14 tab Patient Education Materials: Urinary Tract Infection in Women (ED), Phenazopyridine (By mouth), Sulfamethoxazole/Trimethoprim (By mouth) Referrals: Thaddeus Hung MD [Primary Care Provider] - - Billing Disposition and Condition Condition: STABLE Disposition: HOME
[2017-10-09] MEDS ORDERED: Phenazopyridine TAB* 100 MG PO ONE (18:49)
[2017-10-09] MEDS ORDERED: Sulfamethox/Trimethoprim DS 800/160* TAB PO ONE (18:49)
== END 2017-10-09 18:58 | disposition home or self-care (01) ==
LOC: UCCORT 17:19
DX: N30.00 Acute cystitis without hematuria (principal); Z88.8 Allergy status to other drugs, medicaments and biological substances; Z91.040 Latex allergy status; F17.210 Nicotine dependence, cigarettes, uncomplicated
CPT/HCPCS: 81003; 84702; 87086; 99212; A9270-GY; G0463

== ENCOUNTER 2018-03-21 12:05 | Emergency (ER) | payer OTHER ==
[2018-03-21 14:22] VITALS: BP 109/62
--- NOTE | 2018-03-21 15:14 | RAD ---
HISTORY: boxing injury, pain over prox 3rd metacar. COMPARISONS: None VIEWS: 5 , Frontal, lateral, and oblique views of the left wrist with frontal and lateral views of the left hand FINDINGS: BONE DENSITY: Normal. BONES: There is no displaced fracture. JOINTS: There is no arthropathy. ALIGNMENT: There is no dislocation. SOFT TISSUES: Unremarkable. OTHER FINDINGS: None. IMPRESSION: NO ACUTE OSSEOUS INJURY TO THE LEFT HAND AND WRIST. IF SYMPTOMS PERSIST, RECOMMEND REPEAT IMAGING.
--- NOTE | 2018-03-21 15:17 | UC ---
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 + bruising, swelling over site, bruising has resolved but continues to swell intermittently. No prior injuries, does not feel like tendonitis which she has had in the past. - History of Current Complaint Chief Complaint: UCUpperExtremity Stated Complaint: HAND PAIN Time Seen by Provider: 03/21/18 14:29 Hx Obtained From: Patient Hx Last Menstrual Period: lost twins 7 weeks ago. Onset/Duration: Sudden Onset, Lasting Weeks - x 2 Severity Initially: Severe Severity Currently: Moderate Pain Intensity: 5 Pain Scale Used: 0-10 Numeric Location Of Pain: Is Diffuse, Is Discrete @ - plantar aspect L hand/ wrist Character: Dull, Aching, Stiffness Aggravating Factor(s): Movement, Lifting, Flexion Alleviating Factor(s): Ice, Rest - Allergies/Home Medications Allergies/Adverse Reactions: Allergies Allergy/AdvReac Type Severity Reaction Status Date / Time latex Allergy See Comment Verified 03/21/18 14:22 valacyclovir Allergy Swelling Verified 03/21/18 14:22 Of Face,Lips,& Throat SSRIs Allergy "I can't Uncoded 03/21/18 14:22 sit still." PMH/Surg Hx/FS Hx/Imm Hx - Surgical History Surgical History: Yes Surgery Procedure, Year, and Place: wisdom tooth (one) - Family History Known Family History: Positive: None, Unknown - Pt is adopted, Hypertension - Social History Alcohol Use: None Alcohol Amount: 2 times a week Substance Use Type: None Substance Use Comment - Amount & Last Used: clonazepamand amitriptline Smoking Status (MU): Former Smoker Type: Cigarettes, eCigarettes Amount Used/How Often: e cigarette- 1 regular cigarette Length of Time of Smoking/Using Tobacco: Since Age 17 Have You Smoked in the Last Year: No Household Exposure Type: Cigarettes Review of Systems Musculoskeletal: Arthralgia, Edema, Myalgia Is Patient Immunocompromised?: No All Other Systems Reviewed And Are Negative: Yes Physical Exam Triage Information Reviewed: Yes Appearance: Well-Appearing, No Pain Distress, Well-Nourished Vital Signs: Initial Vital Signs Temp 98.8 F 03/21/18 14:13 Pulse 67 03/21/18 14:13 Resp 18 03/21/18 14:13 BP 109/62 03/21/18 14:13 Pulse Ox 100 03/21/18 14:13 Vital Signs Reviewed: Yes Musculoskeletal: Positive: Other: - tenderness to palpation over third metacarpal proximal to deep palpation, no deformity Neurological Exam: Normal Neurological: Positive: Other: - SITLT Psychological Exam: Normal Skin Exam: Normal Skin: Positive: Other - no edema ecchymosis noted. Upper Extremity Course/Dx - Course Course Of Treatment: X-ray review, no fracture, probably bone contusion, RICE, decreased activities, follow up with ortho if no improvement within 10-14 days - Differential Dx/Diagnosis Provider Diagnoses: bone contusion Discharge - Sign-Out/Discharge Documenting (check all that apply): Patient Departure All imaging exams completed and their final reports reviewed: Yes - Discharge Plan Condition: Good Disposition: HOME Patient Education Materials: Contusion in Adults (ED) Referrals: Thaddeus Hung MD [Primary Care Provider] - Andrei Quinn MD [Medical Doctor] - Additional Instructions: - continue Ice and rest - If no improvement follow up with orthopedics within 2 weeks - Avoid contact sports x 2 weeks - Splint while active to avoid re-injury - Billing Disposition and Condition Condition: GOOD Disposition: Home
== END 2018-03-21 15:38 | disposition home or self-care (01) ==
LOC: UCEAST 12:05
DX: S60.222A Contusion of left hand, initial encounter (principal); Y93.71 Activity, boxing; Y92.9 Unspecified place or not applicable; Z87.59 Personal history of other complications of pregnancy, childbirth and the puerperium; Z87.891 Personal history of nicotine dependence; Z88.8 Allergy status to other drugs, medicaments and biological substances; Z91.040 Latex allergy status
CPT/HCPCS: 99212; G0463

== ENCOUNTER 2018-09-30 18:44 | Emergency (ER) | payer OTHER ==
--- OUTSIDE RECORDS SUMMARY | 2018-09-30 19:18 | XMS REPORT | Continuity of Care Document ---
:1985 External Reference #:[id number] Author Name Roderick Hoyt, OD Address [address] [place] [address] Care Team Providers Name Role Phone Thaddeus Hung MD Care Team Information Box Person Unavailable Thaddeus Hung MD Primary Care Physician Unavailable Payers Date Identification Numbers Payment Provider Subscriber Expires: 2017 Policy Number: [id number] Medicaid [place] Monika Olivas PayID: [id number] [address] [place] [address] Expires: 2017 Policy Number: [id number] [facility] Monika Olivas PayID: [id number] [address] [place] [address] Policy Number: [id number] [facility] Monika Olivas PayID: [id number] [address] [place] [address] Advance Directives Description No Information Available Problems Description No Information Family History Date Family Member(s) Observation Comments General Not Known - Adopted Father Not Known - Adopted Mother Not Known - Adopted Social History Type Date Description Comments Sex Unknown ETOH Use Denies alcohol use Tobacco Use Start: Unknown Patient is a current smoker, smokes every Vape day Smoking Status Reviewed: 09/30/18 Patient is a current smoker, smokes every Vape day Allergies, Adverse Reactions, Alerts Active Allergies Reaction Severity Comments Date Latex 12/30/2016 Valacyclovir 12/30/2016 Medications Active Medications SIG Qnty Indications Ordering Date Provider [facility] Eye apply to ocular 3.500gm Roderick Hoyt, 08/29/2018 Ointment/Overnight surface QHS OU OD Ointment Amitriptyline HCL Take Three Unknown 20mg Tablets By Mouth Tablets AT Bedtime Clonazepam Unknown 0.5mg Tablets History Medications Systane Nighttime 1/4" ribbon 3.500gm Roderick Hoyt, 07/18/2018 - Ointment applied to OD 08/29/2018 ocular surface every night at bedtime both eyes Fluorometholone 1 drop once 10ml Roderick Bolandon, 07/18/2018 - 0.1% daily both eyes OD 09/30/2018 Suspension Fluorometholone 1gtt bid OU x 2 10ml Roderick Hoyt, 05/10/2018 - 0.1% weeks, then OD 07/18/2018 Suspension taper as directed Fluorometholone 1gtt bid OD x 1 10ml Roderick Hoyt, 05/02/2018 - 0.1% week OD 05/10/2018 Suspension Systane Nighttime 06/10" ribbon 3.500gm Roderick Hoyt, 04/27/2018 - Ointment applied to OD 08/29/2018 ocular surface every night at bedtime right eye Restasis one drop twice 180units Roderick Hoyt, 11/17/2017 - 0.05% Emulsion per day both OD 05/02/2018 eyes Restasis Multidose 1 drop both eyes 16.5units Roderick Hoyt, 11/12/2017 - 0.05% twice a day OD 05/02/2018 Emulsion Xiidra 1gtt both eyes 60units Roderick Hoyt, 09/02/2017 - 5% Solution twice a day OD 11/12/2017 Restasis Multidose 1 drop both eyes 16.5units Roderick Hoyt, 08/30/2017 - 0.05% twice a day OD 11/12/2017 Emulsion Lubrifresh P.M. 4" ribbon 3.500gm Roderick Hoyt, 08/10/2017 - Ointment applied to OD 04/27/2018 ocular surface every night at bedtime right eye Systane Nighttime 14" ribbon 3.500gm Roderick Hoyt, 08/09/2017 - Ointment applied to OD 08/30/2017 ocular surface every night at bedtime both eyes Refresh P.M. 4" ribbon 3.500gm Roderick Hoyt, 08/03/2017 - Ointment applied to OD 08/30/2017 ocular surface QHS OD Fluorometholone 1gtt bid OD x 2 10ml Roderick Hoyt, 07/20/2017 - 0.1% weeks OD 08/03/2017 Suspension Artificial Tears one drop qid OD 15ml Roderick Hoyt, 07/20/2017 - 1.4% OD 05/10/2018 Solution Immunizations Description No Information Available Vital Signs Date Vital Result Comment 08/29/2018 11:56am Intraocular Pressure Right Eye 12 mmHg Intraocular Pressure Left Eye 12 mmHg 07/18/2018 12:21pm Intraocular Pressure Right Eye 14 mmHg Intraocular Pressure Left Eye 14 mmHg 05/24/2018 12:17pm Intraocular Pressure Right Eye 14 mmHg Intraocular Pressure Left Eye 14 mmHg 05/10/2018 10:53am Intraocular Pressure Right Eye 14 mmHg Intraocular Pressure Left Eye 14 mmHg 05/02/2018 12:42pm Intraocular Pressure Right Eye 13 mmHg 07/20/2017 11:28am Intraocular Pressure Right Eye 13 mmHg 12/30/2016 3:47pm Intraocular Pressure Right Eye 12 mmHg Intraocular Pressure Left Eye 12 mmHg Results Test Date Facility Test Result H/L Range Note Laboratory test 08/29/2018 [facility] Hemoglobin A1c 5.1 % N 4.0-5.[address] [place] [address] [phone] CBC Auto Diff 05/02/2018 [facility] White Blood 12.6 High 3.5- 10.[address] Count 10^3/uL [place], [place] [id number] [phone] Red Blood Count 4.22 10^6/uL N 4.00-5.40 Hemoglobin 13.1 g/dL N 12.0-16.0 Hematocrit 38 % N 35-47 Mean Corpuscular Volume 91 fL N 80-97 Mean Corpuscular Hemoglobin 31 pg N 27-31 Mean Corpuscular HGB Conc 34 g/dL N 31-36 Red Cell Distribution Width 12 % N 10.5-15 Platelet Count 245 10^3/uL N 150-450 Mean Platelet Volume 8.0 fL N 7.4-10.4 Abs Neutrophils 9.7 10^3/uL High 1.5-7.7 Abs Lymphocytes 2.2 10^3/uL N 1.0-4.8 Abs Monocytes 0.5 10^3/uL N 0-0.8 Abs Eosinophils 0.1 10^3/uL N 0-0.6 Abs Basophils 0 10^3/uL N 0-0.2 Abs Nucleated RBC 0 10^3/uL Granulocyte % 77.0 % Lymphocyte % 17.3 % Monocyte % 4.3 % Eosinophil % 1.0 % Basophil % 0.4 % Nucleated Red Blood Cells % 0 Laboratory test finding 05/02/2018 [facility] T4 7.72 ?g/dL N 6.09-12.[address] [place] [address] [phone] TSH (Thyroid Stimulating Horm) 1.53 mcIU/mL N 0.34-5.60 Total T3 121 ng/dL N 87-178 Laboratory test finding 05/02/2018 [facility] T4 Total Reflex < pending> TSH Baseline <pending> T3 Total <pending> CBC W/Dif No Platelet Count 05/02/2018 [facility] Misc <pending> 1 Therapeutic target for the treatment of diabetes mellitus patients is <7% HBA1C, and in selective patients <6.0%. Please refer to [place] [employer] diabetic care guidelines for further information. Procedures Date Code Description Status 12/30/2016 28873 Oct, Optic Nerve Completed 12/30/2016 83612 Visual Field Exam Extended, Unilateral Or Bilateral Completed 12/30/2016 17060 Eye Exam New Comprehensive Completed Encounters Type Date Location Provider Dx Diagnosis Office Visit 08/29/2018 Main Office Roderick Hoyt, OD H04.123 Dry eye syndrome of 10:15a bilateral lacrimal glands Office Visit 07/18/2018 [facility] Office Roderick Hoyt, OD H04.123 Dry eye syndrome of 9:45a bilateral lacrimal glands Office Visit 05/24/2018 Main Office Roderick Hoyt, OD H04.123 Dry eye syndrome of 11:15a bilateral lacrimal glands Office Visit 05/10/2018 Main Office Roderick Hoyt, OD H16.143 Punctate keratitis, 9:15a bilateral Office Visit 05/02/2018 Main Office Roderick Hoyt, OD H16.141 Punctate keratitis, 11:15a right eye E07.9 Disorder of thyroid, unspecified Office Visit 11/12/2017 11:15a Main Office Roderick Hoyt, H16.223 Keratoconjunct sicca, OD not specified as Sjogren's, bilateral Office Visit 08/30/2017 9:45a Main Office Roderick Hoyt, H16.223 Keratoconjunct sicca, OD not specified as Sjogren's, bilateral Office Visit 08/03/2017 11:15a Main Office Rodercik Hoyt, H16.141 Punctate keratitis, OD right eye Office Visit 07/20/2017 10:45a Main Office Roderick Hoyt, H16.141 Punctate keratitis, OD right eye Plan of Treatment Future Appointment(s):04/03/2019 11:15 am - Roderick Hoyt, OD at [id number] - Roderick Hoyt, ODH04.123 Dry eye syndrome of bilateral lacrimal glandsFollow up:6 mos full, sooner PRN
--- OUTSIDE RECORDS SUMMARY | 2018-09-30 19:18 | XMS REPORT | Continuity of Care Document ---
:1985 External Reference #:[id number] Author Name Hawa Lima Care Team Providers Name Role Phone Thaddeus Hung MD Primary Care Physician Unavailable Payers Date Identification Numbers Payment Provider Subscriber Expires: 2017 Policy Number: [id number] Medicaid Monika Montgomery Group Name: 1 1 [address] PayID: [id number] [place] [address] Policy Number: [id number] [place] Monika Montgomery Group Number: [id number] [address] PayID: [id number] [place] [address] Advance Directives Description No Information Available Problems Date Description Provider Status Onset: 08/17/2017 Migraine without aura, not refractory Alida Hernandez MD Active Onset: 08/17/2017 Neck pain Alida Hernandez MD Active Onset: 08/17/2017 Difficulty breathing Alida Hernandez MD Active Family History Date Family Member(s) Observation Comments General No Current Problems General adopted General Migraine sister Father psychiartric disorder Father dementia Father substance abuse Mother psychiatric disorder Mother substance abuse First Sister psychiartric disorder First Sister Seasonal Allergies Maternal Grandmother psychiartric disorder Social History Type Date Description Comments Sex Unknown Marital Status Lives With Son 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, 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 Tobacco Use Start: Unknown End: Former Cigarette Smoker vapes Unknown ETOH Use Denies alcohol use Tobacco Use Start: Unknown End: Patient is a former Unknown smoker Recreational Drug Use Denies Drug Use Tobacco Use Start: Unknown End: Patient is a former e cig Unknown smoker Smoking Status Reviewed: 09/05/18 Patient is a former smoker Exercise Type/Frequency Exercises regularly [employer] 5-6 days a week Allergies, Adverse Reactions, Alerts Date Description Reaction Status Severity Comments 03/17/2016 Ssri's nervousness Active 03/17/2016 Latex Contact dermatitis Active 03/17/2016 Valtrex tounge swelling Active 07/27/2018 Zithromax Dizziness Active Medications Medication Date Status Form Strength Qnty SIG Indications Ordering Provider Cervical Pillow 06/13/ Active Misc 2units Apply daily M54.12 2018 for Kathryn, myofascial M.D. pain Carisoprodol 03/17/ Active Tablets 350mg 30tabs take one M79.1 2017 tablet by Kathryn, mouth three M.D. times a day as needed for severe muscle spasms maximum daily dose=3 M54.2 Pillow 06/23/2016 Active Misc Please provide J02.9 Padilla Mask/Adult cervical contour cindy Peraltaow to help M.D. pain from cervical straightening Proair HFA Active Aerosol 108 as needed Abhilash, (90 MD Kathy Travis e) mcg /Ac t Probiotic Active Capsules 1 by mouth once Unknown Acidophilus a day (occasionally) L-Lysine Active daily Unknown Amitriptyline Active Tablets 10m 10 mg q hs Unknown HCL g Clonazepam Active Tablets 0.5 1 1/2 mg in am, Unknown Dispers mg 1 tablet at midday, 1/ 2 in pm Systane Active Gel 0.3 ou Unknown Overnight % Therapy Lubricant Eye CBD Oil Active Liquid 10 drops daily Padilla for myofascial Kathryn, pain M.D. Vitamin B12 Active Tablets ER 100 1 by mouth every Unknown 0mc day g Prednisone 05/11/2017 - Hx Tablets 10m 30t take 4 tabs by Padilla 07/15/2017 g abs mouth daily for Kathryn, 2 days then 3 M.D. tabs daily for 2 days then 2 tabs for 2 days then 1 tab for 2 days then d/c as n Nabumetone 05/04/2017 - Hx Tablets 750 60t Take one M79.1 Padilla 07/20/2017 mg abs capsule/tablet Kathryn, by mouth twice M.D. daily as needed for pain, avoid other NSAIDs Amitriptyline 12/01/2016 - Hx Tablets 10m 30t take one M79.1 Padilla HCL 01/03/2017 g abs tablet/capsule Kathryn, by mouth at M.D. bedtime. Meloxicam 10/09/2016 - Hx Tablets 7.5 60t take one tab M79.1 Padilla 05/04/2017 mg abs twice daily as Kathryn, needed for pain, M.D. avoid other nsaids Carisoprodol 09/28/2016 - Hx Tablets 350 30t take one tablet M79.1 Padilla 01/10/2018 mg abs by mouth three Kathryn, times a day as M.D. needed for severe muscle spasms maximum daily dose=3 (on hold) M54.2 Soma 08/07/2016 - Hx Tablets 350mg 30tabs Take One Tablet M79.1 Padilla 09/28/2016 By Mouth AT Kathryn, Bedtime as M.D. Needed For Severe Muscular Spasm Maximum Daily Dose=1 Tablet Amoxicillin 06/23/2016 - Hx Capsules 500mg 30caps 1 by mouth three J02.9 Padilla 08/07/2016 times a day Kathryn, M.D. Flector 06/23/2016 - Hx Patches 1.3% 30units apply 1 patch up J02.9 10/09/2016 to twice dailiy Kathryn, as needed for M.D. pain Cyclobenzaprine 05/08/2016 - Hx Tablets 10mg 30tabs one by mouth at M79.1 Padilla HCL 08/07/2016 at bedtime as Kathryn, needed for M.D. spasms Diclofenac Sodium 04/23/2016 - Hx Tablets DR 75mg 60tabs take one M79.1 05/08/2016 capsule/tablet Kathryn, by mouth twice M.D. daily as needed for pain, avoid other nsaids Lidocaine 04/07/2016 - Hx Ointment 5% 35.440g 1 apply to M54.2 Padilla 04/07/2016 m affected area Kathryn, bid M.D. Lidocaine HCL 04/07/2016 - Hx Gel 2% 30ml apply to M54.2 Padilla 10/09/2016 affected area 3 Kathryn, - 4 times daily M.D. as needed Tizanidine HCL 04/02/2016 - Hx Capsules 2mg 30caps 2 or 3 cap by M79.1 Padilla 05/08/2016 mouth as needed Kathryn, at night for M.D. spasms, stop cyclobenzaprine Lidoderm 03/17/2016 - Hx Patches 5% 30units 1 apply to M54.2 Padilla 04/07/2016 affected area 12 Kathryn, hours on, 12 M.D. hours off Cyclobenzaprine - Hx Tablets 5mg M79.1 Unknown HCL 04/02/2016 Tramadol HCL - Hx Tablets 50mg Unknown 03/17/2016 Amitriptyline HCL - Hx Tablets 10mg Take Three Unknown 03/17/2016 Tablets By Mouth AT Bedtime Lorazepam - Hx Tablets 0.5mg Take One To Two Unknown 01/05/2017 Tablets By Mouth Daily as Needed For Anxiety Maximum D Multi Complete - Hx Capsules daily (Womans Unknown 07/20/2017 Gummy) [facility] - Hx Cream 11-11% as needed Unknown Arthritis Rub 07/20/2017 Clonazepam - Hx Tablets 0.5mg 1 by mouth bid Unknown 01/03/2017 Lorazepam - Hx Tablets 0.5mg 60tabs one by mouth Padilla 08/13/2017 twice a day as Kathryn, needed M.D. Medications Administered in Office Medication Date Status Form Strength Qnty SIG Indications Ordering Provider Toradol Administered Injection Nurse Visit Injection 15MG 019 RH Toradol Administered Injection Nurse Visit Injection 15MG 018 RH Toradol Administered Injection Nurse Visit Injection 15MG 018 RH Toradol Administered Injection Padilla Injection 15MG 018 Watson Peralta Toradol Administered Injection Padilla Injection 15MG 018 [place] Immunizations Description No Information Available Vital Signs Date Vital Result Comment 09/05/2018 10:44am Height 62 inches 5'2" Weight 139.00 lb Heart Rate 68 /min BP Systolic Sitting 120 mmHg BP Diastolic Sitting 68 mmHg Pain Level 2 O2 % BldC Oximetry 98 % BMI (Body Mass Index) 25.4 kg/m2 07/27/2018 2:50pm Height 62 inches 5'2" Weight 139.00 lb Heart Rate 71 /min BP Systolic 118 mmHg BP Diastolic 68 mmHg O2 % BldC Oximetry 99 % BMI (Body Mass Index) 25.4 kg/m2 06/13/2018 9:09am Height 62 inches 5'2" Weight 139.00 lb Heart Rate 78 /min BP Systolic Sitting 116 mmHg BP Diastolic Sitting 62 mmHg Pain Level 3 O2 % BldC Oximetry 98 % BMI (Body Mass Index) 25.4 kg/m2 05/18/2018 8:56am Height 62 inches 5'2" Weight 138.00 lb w/o boots Heart Rate 70 /min BP Systolic Sitting 109 mmHg BP Diastolic Sitting 74 mmHg BMI (Body Mass Index) 25.2 kg/m2 05/12/2018 9:46am Height 62 inches 5'2" Weight 139.00 lb pt. stated Heart Rate 81 /min BP Systolic Sitting 102 mmHg BP Diastolic Sitting 66 mmHg Respiratory Rate 14 /min Pain Level 6 BMI (Body Mass Index) 25.4 kg/m2 01/10/2018 9:56am Height 62 inches 5'2" Weight 134.12 lb Heart Rate 86 /min BP Systolic Sitting 105 mmHg BP Diastolic Sitting 64 mmHg Respiratory Rate 14 /min Pain Level 4 BMI (Body Mass Index) 24.5 kg/m2 10/08/2017 10:26am Height 62 inches 5'2" Weight 132.00 lb Heart Rate 79 /min BP Systolic Sitting 112 mmHg BP Diastolic Sitting 68 mmHg Pain Level 6 O2 % BldC Oximetry 99 % BMI (Body Mass Index) 24.1 kg/m2 08/17/2017 9:42am Height 62 inches 5'2" Weight 128.25 lb Heart Rate 70 /min BP Systolic Sitting 110 mmHg BP Diastolic Sitting 70 mmHg BMI (Body Mass Index) 23.5 kg/m2 08/13/2017 11:24am Height 62 inches 5'2" Weight 129.00 lb Heart Rate 90 /min BP Systolic Sitting 121 mmHg BP Diastolic Sitting 76 mmHg Respiratory Rate 14 /min Pain Level 7 BMI (Body Mass Index) 23.6 kg/m2 07/15/2017 2:35pm Height 62 inches 5'2" Weight 124.12 lb Heart Rate 84 /min BP Systolic Sitting 112 mmHg BP Diastolic Sitting 80 mmHg Respiratory Rate 14 /min Pain Level 4 BMI (Body Mass Index) 22.7 kg/m2 05/04/2017 10:28am Height 62 inches 5'2" Weight 128.00 lb Heart Rate 66 /min BP Systolic Sitting 119 mmHg BP Diastolic Sitting 83 mmHg Respiratory Rate 14 /min Pain Level 8 BMI (Body Mass Index) 23.4 kg/m2 03/09/2017 11:22am Height 62 inches 5'2" Weight 126.00 lb w/ shoes Heart Rate 70 /min reg BP Systolic Sitting 110 mmHg Rue, reg cuff BP Diastolic Sitting 74 mmHg Rue, reg cuff Respiratory Rate 16 /min Pain Level 5 in neck, head, upper back, and shoulders BMI (Body Mass Index) 23.0 kg/m2 01/05/2017 1:13pm Height 62 inches 5'2" Weight 133.00 lb Heart Rate 74 /min BP Systolic Sitting 113 mmHg BP Diastolic Sitting 70 mmHg Body Temperature 98.1 F Pain Level 5 BMI (Body Mass Index) 24.3 kg/m2 12/29/2016 2:19pm Height 62 inches 5'2" Weight 130.00 lb Heart Rate 84 /min BP Systolic 108 mmHg BP Diastolic 68 mmHg Respiratory Rate 16 /min Body Temperature 97.6 F BMI (Body Mass Index) 23.8 kg/m2 12/01/2016 9:50am Height 62 inches 5'2" Heart Rate 64 /min BP Systolic Sitting 106 mmHg BP Diastolic Sitting 74 mmHg Respiratory Rate 14 /min Pain Level 7 11/17/2016 1:48pm Height 62 inches 5'2" Weight 135.00 lb Heart Rate 100 /min BP Systolic Sitting 120 mmHg BP Diastolic Sitting 70 mmHg Respiratory Rate 14 /min Pain Level 5 BMI (Body Mass Index) 24.7 kg/m2 10/09/2016 9:44am Height 62 inches 5'2" Weight 130.25 lb Heart Rate 94 /min BP Systolic Sitting 118 mmHg BP Diastolic Sitting 74 mmHg Respiratory Rate 14 /min Body Temperature 97.8 F BMI (Body Mass Index) 23.8 kg/m2 08/07/2016 10:36am Height 62 inches 5'2" Weight 139.12 lb Heart Rate 96 /min BP Systolic Sitting 112 mmHg BP Diastolic Sitting 77 mmHg Respiratory Rate 14 /min Body Temperature 97.7 F Pain Level 7 BMI (Body Mass Index) 25.4 kg/m2 06/23/2016 9:49am Height 62 inches 5'2" Weight 134.00 lb Heart Rate 68 /min BP Systolic Sitting 130 mmHg BP Diastolic Sitting 82 mmHg Respiratory Rate 14 /min Body Temperature 96.7 F Pain Level 6 BMI (Body Mass Index) 24.5 kg/m2 04/23/2016 9:22am Height 62 inches 5'2" Weight 134.00 lb Heart Rate 80 /min BP Systolic Sitting 122 mmHg BP Diastolic Sitting 70 mmHg Respiratory Rate 14 /min Body Temperature 97.7 F Pain Level 7 BMI (Body Mass Index) 24.5 kg/m2 04/02/2016 11:29am Height 62 inches 5'2" Weight 130.00 lb Heart Rate 80 /min BP Systolic Sitting 104 mmHg BP Diastolic Sitting 60 mmHg Respiratory Rate 14 /min Body Temperature 96.7 F Pain Level 5 BMI (Body Mass Index) 23.8 kg/m2 03/17/2016 9:13am Height 62 inches 5'2" Weight 127.00 lb Heart Rate 76 /min BP Systolic Sitting 118 mmHg BP Diastolic Sitting 78 mmHg Body Temperature 97.4 F Pain Level 5 BMI (Body Mass Index) 23.2 kg/m2 Results Test Date Facility Test Result H/L Range Note Vitamin B12 And 08/15/2018 [facility] Vitamin B12 422 pg/mL N 180-914 1 Folate Serum [address] [place] [address] [phone] Folic Acid (Folate) > 20.00 ng/mL >3.99 2 Metanephrines 05/19/2018 [facility] Plasma Free 0.29 <0.[address] [place] [address] Normetanephrine nmol/[place] [address] [phone] Plasma Free Metanephrine <0.20 nmol/L <0.50 3 Connective Tissue 05/12/2018 [facility] Anti-Nuclear Antibody 0.1 U [address] [place] [address] [phone] Cyclic Citrullinated Peptide <15.6 U 5 Interpretation See Comment 6 Laboratory test 05/12/2018 [facility] Homocysteine 5 mcmol/L [address] [place] [address] [phone] Cardiolipin 05/12/2018 [facility] Phospholipid Ab < 9.4 MPL 8 Igg/Igm [address] [place] [address] IgM, [place] [address] [phone] Phospholipid Ab IgG < 9.4 GPL 9 Laboratory test 05/12/2018 [facility] Thyroperoxidase AB 0.33 IU /mL N <9 [address] [place], [place] [address] [place] [address] [phone] FSH And LH 05/12/2018 [facility] FSH (Follicle Stim 6.7 mIU/mL [address] DR[address] Hormone) [place] [address] [phone] LH (Lutenizing Hormone) 6.8 mIU/mL 12 Laboratory test finding 05/12/2018 [facility] Estradiol <40 pg/ mL [address] [place] [address] [phone] Creatine Kinase(CK) 90 U/L N 10-223 14 Erythrocyte Sed Rate 9 mm/Hr N 0-14 15 C Reactive Protein 1.25 mg/L N <8.01 16 CBC Auto Diff 05/12/2018 [facility] White Blood 4.4 10^3/uL N 3.5-10.[address] [place] [address] [phone] Red Blood Count 4.08 10^6/uL N 4.00-5.40 Hemoglobin 12.5 g/dL N 12.0-16.0 Hematocrit 37 % N 35-47 Mean Corpuscular Volume 91 fL N 80-97 Mean Corpuscular Hemoglobin 31 pg N 27-31 Mean Corpuscular HGB Conc 34 g/dL N 31-36 Red Cell Distribution Width 12 % N 10.5-15 Platelet Count 232 10^3/uL N 150-450 Mean Platelet Volume 8.2 fL N 7.4-10.4 Abs Neutrophils 2.8 10^3/uL N 1.5-7.7 Abs Lymphocytes 1.3 10^3/uL N 1.0-4.8 Abs Monocytes 0.3 10^3/uL N 0-0.8 Abs Eosinophils 0.1 10^3/uL N 0-0.6 Abs Basophils 0 10^3/uL N 0-0.2 Abs Nucleated RBC 0 10^3/uL Granulocyte % 62.6 % Lymphocyte % 29.6 % Monocyte % 6.1 % Eosinophil % 1.3 % Basophil % 0.4 % Nucleated Red Blood Cells % 0 Laboratory test 05/12/2018 [facility] Cortisol 5.18 g/dL [address] [place] [address] [phone] Beta 2 05/12/2018 [facility] Beta 2 <9.4 U/mL 18 Glycoprotein I Abs [address] [place] [place] [address] [phone] Beta 2 Glycoprotein IgM <9.4 U/mL 19 Lupus Anticoagulant 05/12/2018 [facility] Prothrombin 12.0 sec [address] Time(Lac) [place] [address] [phone] Lac Inr 1.1 Lac Aptt 32 sec 26 - 36 Lac DRVVT Screen Ratio 0.9 ratio 0.0 - 1.1 Lupus Anticoagulant Interpreta See Comment 21 Immunoglobulins 05/12/2018 [facility] Immunoglobulin G 834 767 - [address] mg/dL 1590 [place] [address] [phone] Immunoglobulin M 40 mg/dL 37 - 286 Immunoglobulin A 182 mg/dL 61 - 356 Laboratory test 05/12/2018 [facility] Progesterone 0.8 ng/mL [address] [place] [address] [phone] Estradiol, Confirmatory, S 35 pg/mL 24 Order 08/27/2017 [facility] Sleep Study <pending> [address] [place] [address] [phone] Laboratory test 07/15/2017 [facility] Erythrocyte Sed 5 mm/Hr N 0-[address] [place] [address] [phone] C Reactive Protein < 1.00 mg/L N < 5.00 25 Comp Metabolic Panel 07/15/2017 [facility] Sodium 139 mmol/L N [address] [place] [address] [phone] Potassium 4.1 mmol/L N 3.5-5.0 Chloride 106 mmol/L N 101-111 Co2 Carbon Dioxide 28 mmol/L N 22-32 Anion Gap 5 mmol/L N 2-11 Glucose 88 mg/dL N 70-100 Blood Urea Nitrogen 17 mg/dL N 6-24 Creatinine 0.80 mg/dL N 0.51-0.95 BUN/Creatinine Ratio 21.3 High 8-20 Calcium 9.4 mg/dL N 8.6-10.3 Total Protein 6.6 g/dL N 6.4-8.9 Albumin 4.6 g/dL N 3.2-5.2 Globulin 2.0 g/dL N 2-4 Albumin/Globulin Ratio 2.3 N 1-3 Total Bilirubin 0.40 mg/dL N 0.2-1.0 Alkaline Phosphatase 43 U/L N 34-104 Alt 9 U/L N 7-52 Ast 13 U/L N 13-39 Egfr Non- 84.2 >60 Egfr 108.3 >60 26 Laboratory test 07/15/2017 [facility] Creatine 50 U/L N 10- [address] Kinase(CK) [place] [address] [phone] CBC Auto Diff 07/15/2017 [facility] White Blood 8.3 N 3.5- 10.[address] Count 10^3/[place] [address] [phone] Red Blood Count 4.32 10^6/uL N 4.0-5.4 Hemoglobin 13.7 g/dL N 12.0-16.0 Hematocrit 40 % N 35-47 Mean Corpuscular Volume 93 fL N 80-97 Mean Corpuscular Hemoglobin 32 pg High 27-31 Mean Corpuscular HGB Conc 34 g/dL N 31-36 Red Cell Distribution Width 12 % N 10.5-15 Platelet Count 238 10^3/uL N 150-450 Mean Platelet Volume 8 um3 N 7.4-10.4 Abs Neutrophils 5.7 10^3/uL N 1.5-7.7 Abs Lymphocytes 2.1 10^3/uL N 1.0-4.8 Abs Monocytes 0.4 10^3/uL N 0-0.8 Abs Eosinophils 0.1 10^3/uL N 0-0.6 Abs Basophils 0 10^3/uL N 0-0.2 Abs Nucleated RBC 0 10^3/uL Granulocyte % 68.6 % N 38-83 Lymphocyte % 25.0 % N 25-47 Monocyte % 4.7 % N 1-9 Eosinophil % 1.4 % N 0-6 Basophil % 0.3 % N 0-2 Nucleated Red Blood Cells % 0 Laboratory test 07/15/2017 [facility] Free Cortisol 0.229 [address] Serum g/[place] [address] [phone] Laboratory test 05/05/2017 [facility] Erythrocyte Sed 7 mm/Hr N 0-[address] [place] [address] [phone] C Reactive Protein < 1.00 mg/L N < 5.00 28 FSH And LH 05/05/2017 [facility] FSH (Follicle Stim 3.3 mIU/mL [address] Hormone) [place] [address] [phone] LH (Lutenizing Hormone) 7.4 mcIU/mL 30 Free Estradiol 05/05/2017 [facility] Percent Free Estradiol 2.1 % [address] [place] [address] [phone] Free Estradiol 4.3 pg/mL 32 Sex Hormone Binding Globulin 78.8 nmol/L 33 Total Estradiol 204 pg/mL 34 Laboratory test 05/05/2017 [facility] Progesterone 0.6 ng/mL [address] [place] [address] [phone] TSH (Thyroid Stim Horm) 1.00 mcIU/mL N 0.34-5.60 CBC Auto Diff 05/05/2017 [facility] White Blood 5.1 10^3/uL N 3.5-10.[address] [place] [address] [phone] Red Blood Count 4.12 10^6/uL N 4.0-5.4 Hemoglobin 12.9 g/dL N 12.0-16.0 Hematocrit 39 % N 35-47 Mean Corpuscular Volume 94 fL N 80-97 Mean Corpuscular Hemoglobin 31 pg N 27-31 Mean Corpuscular HGB Conc 33 g/dL N 31-36 Red Cell Distribution Width 13 % N 10.5-15 Platelet Count 221 10^3/uL N 150-450 Mean Platelet Volume 9 um3 N 7.4-10.4 Abs Neutrophils 3.3 10^3/uL N 1.5-7.7 Abs Lymphocytes 1.4 10^3/uL N 1.0-4.8 Abs Monocytes 0.3 10^3/uL N 0-0.8 Abs Eosinophils 0.1 10^3/uL N 0-0.6 Abs Basophils 0 10^3/uL N 0-0.2 Abs Nucleated RBC 0.01 10^3/uL Granulocyte % 64.7 % N 38-83 Lymphocyte % 27.6 % N 25-47 Monocyte % 5.8 % N 1-9 Eosinophil % 1.3 % N 0-6 Basophil % 0.6 % N 0-2 Nucleated Red Blood Cells % 0.1 Comp Metabolic Panel 05/05/2017 [facility] Sodium 137 mmol/L N 133-145 [address] [place] [address] [phone] Potassium 3.9 mmol/L N 3.5-5.0 Chloride 103 mmol/L N 101-111 Co2 Carbon Dioxide 28 mmol/L N 22-32 Anion Gap 6 mmol/L N 2-11 Glucose 77 mg/dL N 70-100 Blood Urea Nitrogen 10 mg/dL N 6-24 Creatinine 0.79 mg/dL N 0.51-0.95 BUN/Creatinine Ratio 12.7 N 8-20 Calcium 9.1 mg/dL N 8.6-10.3 Total Protein 6.4 g/dL N 6.4-8.9 Albumin 4.4 g/dL N 3.2-5.2 Globulin 2.0 g/dL N 2-4 Albumin/Globulin Ratio 2.2 N 1-3 Total Bilirubin 0.50 mg/dL N 0.2-1.0 Alkaline Phosphatase 38 U/L N 34-104 Alt 11 U/L N 7-52 Ast 14 U/L N 13-39 Egfr Non- 85.5 >60 Egfr 109.9 >60 36 Laboratory test 05/05/2017 [facility] Miscellaneous Test See Comment 37 finding [address] [place] [address] [phone] Laboratory test 01/05/2017 [facility] Erythrocyte Sed 9 mm/Hr N 0-14 38 finding [address] [place] [address] [phone] C Reactive Protein < 1.00 mg/L N < 5.00 39 Urinalysis Profile 01/05/2017 [facility] Urine Color Colorless N [address] [place] [address] [phone] Urine Appearance Clear N Urine Specific [place] 1.002 Low 1.010-1.030 Urine pH 7.0 N 5-9 Urine Urobilinogen Negative N Negative Urine Ketones Negative N Negative Urine Protein Negative N Negative Urine Leukocytes Negative N Negative Urine Blood Negative N Negative Urine Nitrite Negative N Negative Urine Bilirubin Negative N Negative Urine Glucose Negative N Negative CBC Auto Diff 01/05/2017 [facility] White Blood 5.5 10^3/uL N 3.5-10.[address] [place] [address] [phone] Red Blood Count 4.06 10^6/uL N 4.0-5.4 Hemoglobin 13.1 g/dL N 12.0-16.0 Hematocrit 39 % N 35-47 Mean Corpuscular Volume 95 fL N 80-97 Mean Corpuscular Hemoglobin 32 pg High 27-31 Mean Corpuscular HGB Conc 34 g/dL N 31-36 Red Cell Distribution Width 12 % N 10.5-15 Platelet Count 205 10^3/uL N 150-450 Mean Platelet Volume 9 um3 N 7.4-10.4 Abs Neutrophils 3.4 10^3/uL N 1.5-7.7 Abs Lymphocytes 1.8 10^3/uL N 1.0-4.8 Abs Monocytes 0.3 10^3/uL N 0-0.8 Abs Eosinophils 0.1 10^3/uL N 0-0.6 Abs Basophils 0 10^3/uL N 0-0.2 Abs Nucleated RBC 0 10^3/uL N Granulocyte % 60.9 % N 38-83 Lymphocyte % 32.0 % N 25-47 Monocyte % 5.5 % N 1-9 Eosinophil % 1.2 % N 0-6 Basophil % 0.4 % N 0-2 Nucleated Red Blood Cells % 0 N Laboratory test 01/05/2017 [facility] Creatine 60 U/L N 10- 223 [address] Kinase(CK) [place] [address] [phone] Comp Metabolic 01/05/2017 [facility] Sodium 135 N 133-[address] mmol/[place] [address] [phone] Potassium 4.2 mmol/L N 3.5-5.0 Chloride 103 mmol/L N 101-111 Co2 Carbon Dioxide 28 mmol/L N 22-32 Anion Gap 4 mmol/L N 2-11 Glucose 83 mg/dL N 70-100 Blood Urea Nitrogen 13 mg/dL N 6-24 Creatinine 0.83 mg/dL N 0.51-0.95 BUN/Creatinine Ratio 15.7 N 8-20 Calcium 9.2 mg/dL N 8.6-10.3 Total Protein 6.6 g/dL N 6.4-8.9 Albumin 4.4 g/dL N 3.2-5.2 Globulin 2.2 g/dL N 2-4 Albumin/Globulin Ratio 2.0 N 1-3 Total Bilirubin 0.40 mg/dL N 0.2-1.0 Alkaline Phosphatase 44 U/L N 34-104 Alt 11 U/L N 7-52 Ast 15 U/L N 13-39 Egfr Non- 81.3 N >60 Egfr 104.5 N >60 41 Laboratory test 01/05/2017 [facility] TSH (Thyroid 0.63 mcIU/mL N 0.34-5.60 [address] Stim Horm) [place] [address] [phone] Thyroperoxidase AB 0.28 IU/mL N <9 43 Laboratory test 11/26/2016 [facility] Nuclear AB <1:80 (Negative ) N [address] ([place]) [place] [address] Igg [phone] Urinalysis 11/18/2016 [facility] Urine Color Straw N Profile [address] [place] [address] [phone] Urine Appearance Clear N Urine Specific [place] 1.005 Low 1.010-1.030 Urine pH 6.0 N 5-9 Urine Urobilinogen Negative N Negative Urine Ketones Negative N Negative Urine Protein Negative N Negative Urine Leukocytes Negative N Negative Urine Blood Negative N Negative Urine Nitrite Negative N Negative Urine Bilirubin Negative N Negative Urine Glucose Negative N Negative Laboratory 06/23/2016 [facility] Culture SEE RESULT [address] Throat BELOW [place], [place] [id number] [phone] Laboratory 04/17/2016 [facility] Creatine 52 U/L N 10-223 [address] Kinase(CK) [place], [place] [id number] [phone] Hepatitis 04/17/2016 [facility] Hepatitis B Nonreactive N Nonreactive Acute Panel [address] [place] [address] Antigen [phone] Hepatitis A AB IgM Nonreactive N Nonreactive Hepatitis B Core IgM Nonreactive N Nonreactive Hepatitis C Antibody Nonreactive N Nonreactive Laboratory test 03/26/2016 [facility] Free T4 (Free 0.77 ng/dL N 0.61-1.[address] Thyroxine) [place] [address] [phone] T3 Free 3.30 pg/mL N 2.5-3.9 CBC Auto Diff 03/26/2016 [facility] White Blood 4.7 10^3/uL N 3.5-10.[address] [place] [address] [phone] Red Blood Count 4.05 10^6/uL N 4.0-5.4 Hemoglobin 12.7 g/dL N 12.0-16.0 Hematocrit 38 % N 35-47 Mean Corpuscular Volume 93 fL N 80-97 Mean Corpuscular Hemoglobin 31 pg N 27-31 Mean Corpuscular HGB Conc 34 g/dL N 31-36 Red Cell Distribution Width 12 % N 10.5-15 Platelet Count 211 10^3/uL N 150-450 Mean Platelet Volume 8 um3 N 7.4-10.4 Abs Neutrophils 2.7 10^3/uL N 1.5-7.7 Abs Lymphocytes 1.5 10^3/uL N 1.0-4.8 Abs Monocytes 0.3 10^3/uL N 0-0.8 Abs Eosinophils 0.1 10^3/uL N 0-0.6 Abs Basophils 0 10^3/uL N 0-0.2 Abs Nucleated RBC 0 10^3/uL N Granulocyte % 57.1 % N 38-83 Lymphocyte % 32.4 % N 25-47 Monocyte % 7.3 % N 1-9 Eosinophil % 2.3 % N 0-6 Basophil % 0.9 % N 0-2 Nucleated Red Blood Cells % 0 N Laboratory test 03/26/2016 [facility] [facility] HCG < 0.60 mIU/ mL N [address] [place] [address] [phone] Celiac Hla DQ1/DQ2 03/26/2016 [facility] Hla-Dqa1 SEE BELOW N [address] [place] [address] [phone] Hla-DQB1 SEE BELOW N 49 Celiac Gene Pairs Present? No N Celiac Gene Interpretation See Comment N 50 Celiac Panel 03/26/2016 [facility] Tissue Transglutaminase <1.2 U/mL N [address] [place] [address] [phone] Immunoglobulin A 161 mg/dL N 61 - 356 Celiac Interpretation See Comment N 52 Vitamin D 1,25 03/26/2016 [facility] Vitamin D Total 35.5 ng/mL N 30-50 And Vitamin D,[address] 25(Oh) [place] [address] [phone] Vitamin D, 1,25 Dihydroxy 70 pg/mL N 18-78 53 Laboratory test 03/26/2016 [facility] Angiotensin 23 U/L N 8 - 53 [address] [place] [address] [phone] C1 Esterase Inhibitor Ag 24 mg/dL N 19 - 37 55 Ssa/SSB Abs Igg 03/26/2016 [facility] SS-A/Ro Antibody <0.2 U N [address] [place] [address] [phone] SS-B/La Antibody <0.2 U N 57 Laboratory test 03/26/2016 [facility] Erythrocyte Sed 7 mm/Hr N 0-[address] [place] [address] [phone] C Reactive Protein 1.68 mg/L N < 5.00 58 Hla B27 03/26/2016 [facility] Hla B27 Negative N [address] [place] [address] [phone] Hla B27 Interp See Comment N 60 Laboratory test 03/26/2016 [facility] Lyme Disease Negative N Negative [address] [place] [address] [phone] Anti Nuclear Antibody <0.1 U N 62 Rheumatoid Factor <15 IU/mL N <15 63 Cyclic Citrullinated Pep Igg <15.6 U N 64 Free Cortisol Serum 0.12 g/dL N 65 Comp Metabolic Panel 03/26/2016 [facility] Sodium 137 mmol/L N 133-[address] [place] [address] [phone] Potassium 3.8 mmol/L N 3.5-5.0 Chloride 106 mmol/L N 101-111 Co2 Carbon Dioxide 26 mmol/L N 22-32 Anion Gap 5 mmol/L N 2-11 Glucose 76 mg/dL N 70-100 Blood Urea Nitrogen 14 mg/dL N 6-24 Creatinine 0.75 mg/dL N 0.51-0.95 BUN/Creatinine Ratio 18.7 N 8-20 Calcium 9.1 mg/dL N 8.6-10.3 Total Protein 6.5 g/dL N 6.4-8.9 Albumin 4.3 g/dL N 3.2-5.2 Globulin 2.2 g/dL N 2-4 Albumin/Globulin Ratio 2.0 N 1-3 Total Bilirubin 0.50 mg/dL N 0.2-1.0 Alkaline Phosphatase 44 U/L N 34-104 Alt 43 U/L N 7-52 Ast 82 U/L High 13-39 Egfr Non- 91.4 N >60 Egfr 117.5 N >60 66 Laboratory test 03/26/2016 [facility] Vitamin B12 693 pg/mL N 180-914 [address] [place] [address] [phone] Normal Range 180 to 914 Indeterminate Range 145 to 180 Deficient Range <145 2 Please schedule labs this month 3 ADDITIONAL INFORMATION This test was developed and its performance characteristics determined by [facility] in a manner consistent with CLIA requirements. This test has not been cleared or approved by the U.S. Food and Drug Administration. Test Performed by: [facility] [employer] [facility] [employer] [address] [place] [address] 4 REFERENCE VALUE <=1.0 (Negative) 5 REFERENCE VALUE <20.0 (Negative) 6 Tests for antibodies to dsDNA and DELMI antigens are not performed automatically unless the THALIA result is > or= 3.0 U. Studies performed at [facility] indicate that positive THALIA results <3.0 U are rarely accompanied by positive second order tests. Test Performed by: [facility] [facility] [address] [place] [address] 7 REFERENCE VALUE <=13 (Fasting) ADDITIONAL INFORMATION This test was developed and its performance characteristics determined by [facility] in a manner consistent with CLIA requirements. This test has not been cleared or approved by the U.S. Food and Drug Administration. Test Performed by: [facility] - [address] [address] 8 REFERENCE VALUE <15.0 (Negative) 9 REFERENCE VALUE <15.0 (Negative) Test Performed by: [facility] - [address] [address] 10 Please check labs this week 11 Normally menstruating females - Follicular phase 3 - 9 - Mid-cycle peak 4 - 23 - Luteal phase 1 - 6 Postmenopausal females 16 - 114 12 Normally menstruating females - Follicular Phase 1 - 18 - Mid-Cycle Peak 24 - 105 - Luteal Phase 0.6 - 20 Postmenopausal females 15 - 62 13 Estradiols <40 pg/mL are sent to a reference lab for low range testing. Postmenopausal Females < 20 Ovulating females: by day in cycle relative to LH Peak Follicular phase - 12 10-50 - 4 60-200 Mid-cycle - 1 120-375 Luteal phase + 2 50-155 + 6 60-260 + 12 15-115 14 Please check labs this week 15 Please check labs this week 16 Please check labs this week 17 AM 8.7-22.4 PM <10 18 REFERENCE VALUE <15.0 (Negative) 19 REFERENCE VALUE <15.0 (Negative) Test Performed by: [facility] - [address] [address] 20 REFERENCE VALUE 10.3 - 12.8 21 No evidence of a lupus-like anticoagulant based on results of Prothrombin Time (PT), Activated Partial Thromboplastin Time (APTT), and Dilute Russells Viper Venom Time (DRVVT). Interpretation not reviewed by physician. Test Performed by: [address] [address] 22 Test Performed by: [facility] - [address] [address] 23 Female reference ranges for Progesterone: Follicular phase.......0.3 - 1.5 ng/ml Mid-luteal phase.......5.2 - 18.5 ng/ml Postmenopausal.........< 0.8 ng/ml 1st trimester.........4.7 - 50.0 ng/ml 2nd trimester.........19.4 - 45.3 ng/ml 24 REFERENCE VALUE Premenopausal: 15-350 (E2 levels vary widely through the menstrual cycle.) Postmenopausal: <10 ADDITIONAL INFORMATION This test was developed and its performance characteristics determined by [facility] in a manner consistent with CLIA requirements. This test has not been cleared or approved by the U.S. Food and Drug Administration. Test Performed by: [facility] - [place] [id number] [place] [address] 25 Acute inflammation: >10.00 26 Because ethnic data is not always readily available, this report includes an eGFR for both -Americans and non- Americans. The National Kidney Disease Education Program (NKDEP) does not endorse the use of the MDRD equation for patients that are not between the ages of 18 and 70, are , have extremes of body size, muscle mass, or nutritional status, or are non- or non-. According to the National Kidney Foundation, irrespective of diagnosis, the stage of the disease is based on the level of kidney function: Stage Description GFR(mL/min/1.73 m(2)) 1 Kidney damage with normal or decreased GFR 90 2 Kidney damage with mild decrease in GFR 60-89 3 Moderate decrease in GFR 30-59 4 Severe decrease in GFR 15-29 5 Kidney failure <15 (or dialysis) 27 REFERENCE VALUE 6:00-10:30 AM Collection 0.121-1.065 mcg/dL ADDITIONAL INFORMATION This test was developed and its performance characteristics determined by [facility] in a manner consistent with CLIA requirements. This test has not been cleared or approved by the U.S. Food and Drug Administration. Test Performed by: [facility] [employer] - [place] [id number] [place] [address] 28 Acute inflammation: >10.00 29 Normally menstruating females - Follicular phase 3 - 9 - Mid-cycle peak 4 - 23 - Luteal phase 1 - 6 Postmenopausal females 16 - 114 30 Normally menstruating females - Follicular Phase 1 - 18 - Mid-Cycle Peak 24 - 105 - Luteal Phase 0.6 - 20 Postmenopausal females 15 - 62 31 Reference Range: Adult Females: 1.6 - 3.6 32 Reference Range: Adult Females: 0.6 - 7.1 33 Reference Range: Pubertal: 36.0 - 125.0 20 - 49y: 24.6 - 122.0 >49y: 17.3 - 125.0 Test Performed by: [facility] [place] [address] 34 Reference Range: Adult Females Follicular: 30 - 100 Luteal: 70 - 300 Postmenopausal: <15 35 Female reference ranges for Progesterone: Follicular phase.......0.3 - 1.5 ng/ml Mid-luteal phase.......5.2 - 18.5 ng/ml Postmenopausal.........< 0.8 ng/ml 1st trimester.........4.7 - 50.0 ng/ml 2nd trimester.........19.4 - 45.3 ng/ml 36 Because ethnic data is not always readily available, this report includes an eGFR for both -Americans and non- Americans. The National Kidney Disease Education Program (NKDEP) does not endorse the use of the MDRD equation for patients that are not between the ages of 18 and 70, are , have extremes of body size, muscle mass, or nutritional status, or are non- or non-. According to the National Kidney Foundation, irrespective of diagnosis, the stage of the disease is based on the level of kidney function: Stage Description GFR(mL/min/1.73 m(2)) 1 Kidney damage with normal or decreased GFR 90 2 Kidney damage with mild decrease in GFR 60-89 3 Moderate decrease in GFR 30-59 4 Severe decrease in GFR 15-29 5 Kidney failure <15 (or dialysis) 37 Test Result Flag Unit RefValue Amphetamines, S/P, Screen Negative ng/mL (Cutoff 30) Methamphetamine, S/P, Screen Negative ng/mL (Cutoff 30) Barbiturates, S/P, Screen Negative ng/mL (Cutoff 75) Benzodiazepines, S/P, Screen Negative ng/mL (Cutoff 75) Buprenorphine, S/P, Screen Negative ng/mL (Cutoff 1) Cannabinoids, S/P, Screen Negative ng/mL (Cutoff 30) Cocaine, S/P, Screen Negative ng/mL (Cutoff 30) Methadone, S/P, Screen Negative ng/mL (Cutoff 40) Opiates, S/P, Screen Negative ng/mL (Cutoff 30) Oxycodone, S/P, Screen Negative ng/mL (Cutoff 30) Phencyclidine, S/P, Screen Negative ng/mL (Cutoff 15) INTERPRETIVE INFORMATION: 1. Methodology: Qualitative Immunoassay Screen 2. Drugs/Drug classes reported as "Positive" are automatically reflexed to mass spectrometry confirmation/quantitation testing. An immunoassay unconfirmed positive screen result may be useful for medical purposes but does not meet forensic standards. 3. The absence of expected drug(s) and/or drug metabolite(s) may indicate non-compliance, inappropriate timing of specimen collection relative to drug administration, poor drug absorption, or limitations of testing. The concentration at which the screening test can detect a drug or metabolite varies within a drug class. Specimens for which drugs or drug classes are detected by the screen are automatically reflexed to a second, more specific technology (mass spectrometry). The concentration value must be greater than or equal to the cutoff to be reported as positive. Interpretive questions should be directed to the laboratory. 4. For medical purposes only; not valid for forensic use. Test developed and characteristics determined by [employer] See Compliance Statement B: [employer] Test Performed by: [employer] [address] [place] [id number] REVISED REPORT --- Revised on 05/12/17901 --- Ref Lab Test previously reported as: See Comment Test Result Flag Unit RefValue DRUG SCREEN 9 PANEL See Comment Testing is complete. Final report has been sent to the referring laboratory. Test Performed by: [employer] [address] [place] [id number] 38 Please check labs this week 39 Acute inflammation: >10.00 40 Please check labs this week 41 Because ethnic data is not always readily available, this report includes an eGFR for both -Americans and non- Americans. The National Kidney Disease Education Program (NKDEP) does not endorse the use of the MDRD equation for patients that are not between the ages of 18 and 70, are , have extremes of body size, muscle mass, or nutritional status, or are non- or non-. According to the National Kidney Foundation, irrespective of diagnosis, the stage of the disease is based on the level of kidney function: Stage Description GFR(mL/min/1.73 m(2)) 1 Kidney damage with normal or decreased GFR 90 2 Kidney damage with mild decrease in GFR 60-89 3 Moderate decrease in GFR 30-59 4 Severe decrease in GFR 15-29 5 Kidney failure <15 (or dialysis) 42 Please check labs this week 43 Please check labs this week 44 <1:80 (Negative) REFERENCE VALUE <1:80 (Negative) Test Performed by: [address] [address] 45 SEE RESULT BELOW Name: MONIKA MONTGOMERY : [address]: Padilla Peralta MD Acct: [id number] Unit: [id number] AGE: 31 Location: [facility] Re06/23/16 SEX: F Status: REG REF SPEC: [id number] SHAHID: 06/23/16-[address] [facility] DR: Padilla Peralta MD REQ: [id number] RECD: 06/23/16 STATUS: COMP _ SOURCE: THROAT SPDESC: ORDERED: Throat Culture Procedure Result Reported Site Throat Culture Final 06/25/16- 1216 ML Organism 1 NORMAL YANIRA Quantity 3+ * ML - MAIN LAB (PSC1) . END OF REPORT * ML=Testing performed at Main Lab DEPARTMENT OF PATHOLOGY, [address] [place] [address] Rah George M.D. Director [facility] # [id number] 46 Please check this week 47 <5.0 Negative 5.0 - 25.0 Indeterminate (Repeat testing recommended after 72 hours) >25.0 Positive Perimenopausal women can display HCG levels of up to 20 mIU/mL 48 RESULT: 01:02,05 REFERENCE VALUE Not Applicable 49 RESULT: 03:01,05:01 DQ Serologic Equivalent: 7,5 REFERENCE VALUE Not Applicable 50 The absence of HLA celiac permissive genes would make the presence of celiac disease unlikely. ADDITIONAL INFORMATION Method: Molecular typing of HLA antigens performed using reverse SSOP and/or SSP methods, reported as serological equivalents and low to medium resolution molecular values. Performing Laboratory CLIA# [id number] Test Performed by: [place] [address] [employer]: Jaya Greenwood II, M.D., Ph.D. 51 REFERENCE VALUE <4.0 (Negative) Test Performed by: [place] [address] [employer]: Jaya Greenwood II, M.D., Ph.D. 52 Negative serology. Celiac disease unlikely. However, approximately 10% of patients with celiac disease are seronegative. Also, patients who are already adhering to a gluten-free diet may be seronegative. If celiac disease is highly clinically suspected, consider HLA-DQ typing. Test Performed by: [place] [address] [employer]: Jaya Greenwood II, M.D., Ph.D. 53 ADDITIONAL INFORMATION This test was developed and its performance characteristics determined by [facility] in a manner consistent with CLIA requirements. This test has not been cleared or approved by the U.S. Food and Drug Administration. Test Performed by: [place] [address] [employer]: Jaya Greenwood II, M.D., Ph.D. 54 The sample is slightly hemolyzed. This may reduce TAD values by as much as 10%. Test Performed by: [place] [address] [employer]: Jaya Greenwood II, M.D., Ph.D. 55 Test Performed by: [place] [address] [employer]: Jaya Greenwood II, M.D., Ph.D. 56 REFERENCE VALUE <1.0 (Negative) 57 REFERENCE VALUE <1.0 (Negative) Test Performed by: [place] [address] [employer]: Jaya Greenwood II, M.D., Ph.D. 58 Acute inflammation: >10.00 59 REFERENCE VALUE Not Applicable 60 RESULT: HLA-B27 antigen was not detected. ADDITIONAL INFORMATION Method: Flow Cytometry Performing Laboratory CLIA# [id number] Test Performed by: [place] [address] [employer]: Jaya Greenwood II, M.D., Ph.D. 61 Serologic response to B. burgdorferi infection is not detected, but cannot rule out early infection during which low or undetectable antibody levels to B. burgdorferi may be present. If clinically indicated, a new serum specimen should be submitted in 7-14 days. Test Performed by: [place] [address] [employer]: Jaya Greenwood II, M.D., Ph.D. 62 REFERENCE VALUE <=1.0 (Negative) Test Performed by: [place] [address] [employer]: Jaya Greenwood II, M.D., Ph.D. 63 Test Performed by: [place] [address] [employer]: Jaya Greenwood II, M.D., Ph.D. 64 REFERENCE VALUE <20.0 (Negative) Test Performed by: [place] [address] [employer]: Jaya Greenwood II, M.D., Ph.D. 65 Adult Reference Ranges for Cortisol, Free, LC/MS/MS: 8:00 - 10:00 AM 0.07-0.93 mcg/dL 4:00 - 6:00 PM 0.04-0.45 mcg/dL 10:00 - 11:00 PM 0.04-0.35 mcg/dL This test was developed and its analytical performance characteristics have been determined by [facility]. It has not been cleared or approved by FDA. This assay has been validated pursuant to the CLIA regulations and is used for clinical purposes. Test Performed by: [facility]/[address] [place] [address] 66 Because ethnic data is not always readily available, this report includes an eGFR for both -Americans and non- Americans. The National Kidney Disease Education Program (NKDEP) does not endorse the use of the MDRD equation for patients that are not between the ages of 18 and 70, are , have extremes of body size, muscle mass, or nutritional status, or are non- or non-. According to the National Kidney Foundation, irrespective of diagnosis, the stage of the disease is based on the level of kidney function: Stage Description GFR(mL/min/1.73 m(2)) 1 Kidney damage with normal or decreased GFR 90 2 Kidney damage with mild decrease in GFR 60-89 3 Moderate decrease in GFR 30-59 4 Severe decrease in GFR 15-29 5 Kidney failure <15 (or dialysis) 67 Normal Range 180 to 914 Indeterminate Range 145 to 180 Deficient Range <145 Procedures Date Code Description Status 08/03/2018 68746 Admin Of Inj Completed 03/24/2018 95054 Admin Of Inj Completed 11/10/2017 71522 Admin Of Inj Completed 10/08/2017 24628 Admin Of Inj Completed 08/13/2017 75264 Admin Of Inj Completed 12/01/201645532 Injection Single Or Multiple Trigger Points Three Or More Completed Muscles 11/17/2016 64004 Trigger PT Inj(S) Single Or Multiple Points 1 Or 2 Muscles Completed Encounters Type Date Location Provider Dx Diagnosis Office Visit 07/27/2018 [facility] Loren Wardch, G89.4 Chronic pain 3:00p [facility] syndrome F41.9 Anxiety disorder, unspecified Office Visit 05/18/2018 9:00a [facility] [place] Coch, R00.2 Palpitations [facility] F41.9 Anxiety disorder, unspecified Office Visit 05/12/2018 9:40a [facility] Renzo Roy4.2 C[facility] Chaudhari H53.8 Other visual disturbances M54.12 Radiculopathy, cervical region R51 Headache 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 M79.1 Myalgia R51 Headache Office Visit 08/17/2017 [facility] G43.009 Migraine w/o 9:30a Clinic MD Mary aura, not intractable, w/o status migrainosus M54.2 Cervicalgia M79.1 Myalgia R06.83 Snoring Office Visit 08/13/2017 11:00a [facility] Kellie Roy.1 Myalgia Of Material Damage Appraiser M.D. 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 M54.2 Cervicalgia M54.14 Radiculopathy, thoracic region R80.0 Isolated proteinuria H53.8 Other visual disturbances Office Visit 11/17/2016 1:40p [facility] Kellie Roy.1 Myalgia Of Material Damage Appraiser M.D. M54.2 Cervicalgia M54.14 Radiculopathy, thoracic region R80.0 Isolated proteinuria M54.6 Pain in thoracic spine Office Visit 10/09/2016 9:40a [facility] Renzo Roy4.2 Cervicalgia Of Material Damage Appraiser M.D. M79.1 Myalgia R20.8 Other disturbances of skin sensation Office Visit 08/07/2016 10:20a [facility] Kellie Roy.1 Myalgia Of Material Damage Appraiser M.D. M54.2 Cervicalgia J01.90 Acute sinusitis, unspecified Office Visit 06/23/2016 9:40a Rheumatology Padilla Guerra02.9 Acute pharyngitis , Services Of Material Damage Appraiser Watson Peralta unspecified M54.2 Cervicalgia M79.1 Myalgia R20.8 Other disturbances of skin sensation M25.569 Pain in unspecified knee Office Visit 04/23/2016 9:20a [facility] Renzo Roy4.2 Cervicalgia Of Material Damage Appraiser M.D. M79.1 Myalgia M25.569 Pain in unspecified knee Office Visit 04/02/2016 11:20a [facility] Kelile Roy.1 Myalgia Of Material Damage Appraiser M.D. M54.2 Cervicalgia M54.14 Radiculopathy, thoracic region R20.8 Other disturbances of skin sensation R74.0 Nonspec elev of levels of transamns & lactic acid dehydrgnse Office Visit 03/17/2016 9:00a [facility] Kellie Roy.1 Myalgia Of Material Damage Appraiser M.D. R20.8 Other disturbances of skin sensation M54.14 Radiculopathy, thoracic region M54.2 Cervicalgia M35.01 Sicca syndrome with keratoconjunctivitis T78.3xxA Angioneurotic edema, initial encounter Plan of Treatment Future Appointment(s):12/05/2018 10:00 am - Padilla Peralta M.D. at [facility]09/05/2018 - Padilla Peralta M.D.G89.4 Chronic pain kzstqbhvE62.2 NxcyfdbbzczQ33.10 Myalgia, unspecified siteFollow up:Follow up in 3 to 5 months or sooner if needed
[2018-09-30 19:30] VITALS: BP 119/81
--- NOTE | 2018-09-30 20:41 | UC ---
Complaint Female HPI - HPI Summary HPI Summary: Pt c/o sudden onset of vaginal swelling and discomfort that began this evening while having sexual intercourse with her . Pt states that she was prescribed metrogel vaginal for BV by PCP, inserted gel last evening, then began to have intercourse this evening and had sudden onset of swelling and pain in vaginal canal and swelling of labia. Pt sdenies risk for STi's. Is unsure if she is - History Of Current Complaint Chief Complaint: UCGeneralIllness Stated Complaint: PERSONAL Time Seen by Provider: 09/30/18 19:31 Hx Obtained From: Patient Hx Last Menstrual Period: 09/18/18 ?: No Onset/Duration: Sudden Onset, Lasting Hours Timing: Constant Severity Initially: Moderate Severity Currently: Moderate Pain Intensity: 5 Pain Scale Used: 0-10 Numeric Character: Dull, Burning Aggravating Factor(s): [place] Alleviating Factor(s): Nothing Associated Signs And Symptoms: Positive: Vaginal Discharge, Genital Swelling - Risk Factors Ectopic Risk Factor: Negative Ovarian Torsion Risk Factor: Reproductive Age - Allergies/Home Medications Allergies/Adverse Reactions: Allergies Allergy/AdvReac Type Severity Reaction Status Date / Time azithromycin [From Zithromax] Allergy Dizziness Verified 09/30/18 19:21 latex Allergy See Comment Verified 09/30/18 19:21 valacyclovir Allergy Swelling Verified 09/30/18 19:21 Of Face,Lips,& Throat SSRIs Allergy "I can't Uncoded 09/30/18 19:21 sit still." Home Medications: Home Medications metroNIDAZOLE [Metrogel] 1 gel BEDTIME 09/30/18 [History Confirmed 09/30/18] PMH/Surg Hx/FS Hx/Imm Hx Previously Healthy: Yes - Surgical History Surgical History: Yes Surgery Procedure, Year, and Place: wisdom tooth (one). D&C - Family History Known Family History: Positive: None, Unknown - Pt is adopted, Hypertension - Social History Occupation: Employed Part-time Lives: With Family Alcohol Use: None Alcohol Amount: 2 times a week Substance Use Type: Prescribed Substance Use Comment - Amount & Last Used: prescription marijuana Smoking Status (MU): Light Every Day Tobacco Smoker Type: eCigarettes Amount Used/How Often: e cigarette- 1 regular cigarette Length of Time of Smoking/Using Tobacco: Since Age 17 Have You Smoked in the Last Year: Yes - e cigarette Household Exposure Type: Cigarettes Review of Systems All Other Systems Reviewed And Are Negative: Yes Constitutional: Positive: Negative Skin: Positive: Negative Eyes: Positive: Negative ENT: Positive: Negative Respiratory: Positive: Negative Cardiovascular: Positive: Negative Gastrointestinal: Positive: Abdominal Pain - pelvic discomfort Genitourinary: Positive: Vaginal/Penile Burning, Vaginal/Penile Itching, Vaginal /Penile Discharge, Vaginal/Penile Pain, Vaginal/Penile Tenderness Motor: Positive: Negative Neurovascular: Positive: Negative Musculoskeletal: Positive: Negative Neurological: Positive: Negative Psychological: Positive: Negative Is Patient Immunocompromised?: No Physical Exam Triage Information Reviewed: Yes Appearance: Well-Appearing Vital Signs: Initial Vital Signs Temp 99.2 F 09/30/18 19:23 Pulse 73 09/30/18 19:23 Resp 17 09/30/18 19:23 BP 119/81 09/30/18 19:23 Pulse Ox 100 09/30/18 19:23 Vital Signs Reviewed: Yes Eye Exam: Normal ENT Exam: Normal Dental Exam: Normal Neck exam: Normal Respiratory Exam: Normal Cardiovascular Exam: Normal Abdominal Exam: Normal Abdomen Description: Positive: Nontender Pelvic Exam: Positive: Speculum Exam Normal, Bimanual Exam Normal, No Cerv. Motion Tender, Discharge - yellow/white. labia swelling, vaginal canal swelling , no lesions, sores or ulcerations Musculoskeletal Exam: Normal Neurological Exam: Normal Psychological Exam: Normal Skin Exam: Normal Complaint Female Dx - Differential Dx/Diagnosis Differential Diagnosis/HQI/PQRI: Pelvic Inflammatory Disease, Sexually Transmitted Disease, Urinary Tract Infection Provider Diagnosis: Vaginitis Discharge - Sign-Out/Discharge Documenting (check all that apply): Patient Departure All imaging exams completed and their final reports reviewed: No Studies - Discharge Plan Condition: Stable Disposition: HOME Patient Education Materials: Vaginitis (ED) Referrals: Thaddeus Hung MD [Primary Care Provider] - As Soon As Possible Additional Instructions: PLEASE FOLLOW UP WITH YOUR ASSEMBLER CHASSIS PROVIDER SOON POSSIBLE. PLEASE DO NOT HAVE SEXUAL INTERCOURSE UNTIL YOUR SYMPTOMS HAVE RESOLVED. - Billing Disposition and Condition Condition: STABLE Disposition: Home - Attestation Statements Provider Attestation: I was available for consult. This patient was seen by the SARA. The patient was not presented to , seen by or examined by co -Ra Wheeler MD
--- NOTE | 2018-10-02 07:25 | ED ---
Progress - Progress Note Progress Note: Pt appears to already be on metrogel. BV pos on affirm. I will send in rx for flagyl po. Course/Dx - Diagnoses Provider Diagnoses: Vaginitis Discharge - Sign-Out/Discharge Documenting (check all that apply): Post-Discharge Follow Up All imaging exams completed and their final reports reviewed: No Studies - Discharge Plan Condition: Stable Disposition: HOME Patient Education Materials: Vaginitis (ED) Referrals: Thaddeus Hung MD [Primary Care Provider] - As Soon As Possible Additional Instructions: PLEASE FOLLOW UP WITH YOUR DOCUMENT MANAGEMENT CONSULTANT PROVIDER SOON POSSIBLE. PLEASE DO NOT HAVE SEXUAL INTERCOURSE UNTIL YOUR SYMPTOMS HAVE RESOLVED. - Billing Disposition and Condition Condition: STABLE Disposition: Home
[2018-10-03 14:06] LABS: Neisseria gonorrhoeae (GC) RNA Negative (Negative)
== END 2018-09-30 20:14 | disposition home or self-care (01) ==
LOC: UCCORT 18:44
DX: N76.0 Acute vaginitis (principal); F17.290 Nicotine dependence, other tobacco product, uncomplicated; Z88.8 Allergy status to other drugs, medicaments and biological substances; Z91.040 Latex allergy status; Z88.1 Allergy status to other antibiotic agents
CPT/HCPCS: 81003; 84702; 87480; 87491; 87510; 87591; 87660; 99211; G0463

== ENCOUNTER 2019-01-18 18:17 | Emergency (ER) | payer OTHER ==
[2019-01-18 19:03] LABS: ABS Eosinophils 0.1 10^3/ul (0-0.6); ABS Monocytes 0.5 10^3/ul (0-0.8); ABS Neutrophils 5.4 10^3/ul (1.5-7.7); Eosinophil % 0.8 %; Hematocrit 33 % (35-47); Hemoglobin 11.4 g/dL (12.0-16.0); Lymphocyte % 25.5 %; Mean Corpuscular HGB Conc 35 g/dL (31-36); Mean Corpuscular Hemoglobin 31 pg (27-31); Mean Corpuscular Volume 90 fL (80-97); Mean Platelet Volume 7.5 fL (7.4-10.4); Platelet Count 221 10^3/uL (150-450); Red Blood Count 3.64 10^6 /uL (3.70-4.87); Red Cell Distribution Width 12 % (10-15)
[2019-01-18 19:20] LABS: Albumin 4.1 g/dL (3.2-5.2); BUN/Creatinine Ratio 13.4 (8-20); EGFR African American 98.4 (>60); EGFR Non-African American 81.3 (>60); Globulin 2.1 g/dL (2-4); Potassium 3.3 mmol/L (3.5-5.0); Total Bilirubin 0.3 mg/dL (0.2-1.0); Total Protein 6.2 g/dL (6.4-8.9)
--- NOTE | 2019-01-18 19:22 | ED ---
- HPI Summary HPI Summary: The patient is a 33 y/o F presenting to [facility] accompanied by with a chief complaint of gradual worsening of SOB, dizziness, and palpitations with CP starting about 4 weeks ago. She reports that she had been told that she is currently 6.5 weeks today per sonogram at [facility] and then transferred here from [facility]. She has noticed that within the last few weeks, she has been more SOB with a few days of wheezing, dizzy, and has been experiencing palpitations with intermittent episodes of mild diffuse CP. These symptoms are brought on with exertion including regular ambulation and speaking. She notes that she exercises frequently 4-5 days a week, and she last worked out 2 days ago on an exercise bike, rowing, and pull-down machines for about 10-15 minutes each. She felt well after this. She also states that a year ago she was with twins but had a missed at 10.5 weeks without any of these symptoms. She additionally c/o generalized weakness, numbness and coldness in the BLE, and a few days of spotting that has resolved. She denies any edema in the extremities or productive cough. She is not currently in any pain. She also notes that she has been going to a pelvic floor therapist regularly for the last few months. LNMP: 6.5 weeks ago. A1. PMHx: asthma. FHx: DM, HTN. Unsure of blood clots in family as patient is adopted. Light every day e-cigarette smoker, no EtOH, rx marijuana use. - History of Current Complaint Chief Complaint: EDDysrhythmPalp Stated Complaint: SOB, DIZZINESS PER PT Time Seen by Provider: 01/18/19 19:07 Hx Obtained From: Patient Onset/Duration: Started Weeks Ago - 4-5, Still Present, Worse Since - last 1-2 weeks Timing: Lasting Weeks Severity: Mild Current Severity: Moderate Pain Intensity: 0 Location of Pain: None Character: None Aggravating Factors: Other: - exertion including regular ambulation and speaking Alleviating Factors: Other: - rest Associated Signs and Symptoms: Positive: Other: - POSITIVE: SOB with a few episodes of wheezing, dizzy, intermittent CP with palpitations lasting a few seconds, generalized weakness, numbness and coldness in BLE, vaginal spotting ( resolved); NEGATIVE: edema in extremities, productive cough - Assessment Hx Now: No Hx Hysterectomy: No - Allergies/Home Medications Allergies/Adverse Reactions: Allergies Allergy/AdvReac Type Severity Reaction Status Date / Time azithromycin [From Zithromax] Allergy Dizziness Verified 09/30/18 19:21 latex Allergy See Comment Verified 09/30/18 19:21 valacyclovir Allergy Swelling Verified 09/30/18 19:21 Of Face,Lips,& Throat SSRIs Allergy "I can't Uncoded 09/30/18 19:21 sit still." PMH/Surg Hx/FS Hx/Imm Hx Endocrine/Hematology History: Denies: Hx Diabetes, Hx Thyroid Disease Cardiovascular History: Denies: Hx Hypertension, Hx Pacemaker/ICD Respiratory History: Reports: Hx Asthma - as a child Denies: Hx Chronic Obstructive Pulmonary Disease (COPD) GI History: Denies: Hx Ulcer History: Denies: Hx Dialysis, Hx Renal Disease Sensory History: Denies: Hx Hearing Aid Psychiatric History: Denies: Hx Panic Disorder - Surgical History Surgical History: Yes Surgery Procedure, Year, and Place: wisdom tooth (one). D&C - Immunization History Date of Influenza Vaccine: 05/2017 Infectious Disease History: No Infectious Disease History: Denies: Hx Clostridium Difficile, Hx Hepatitis, Hx Human Immunodeficiency Virus (HIV), Hx of Known/Suspected MRSA, Hx Shingles, Hx Tuberculosis, Hx Known/ Suspected VRE, Hx Known/Suspected VRSA, History Other Infectious Disease, Traveled Outside the [place] in Last 30 Days - Family History Known Family History: Positive: Hypertension, Diabetes, Other - twins in , patient is adopted - Social History Lives: With Family Alcohol Use: None Alcohol Amount: 2 times a week Hx Substance Use: No Substance Use Type: Reports: Prescribed Substance Use Comment - Amount & Last Used: prescription marijuana Hx Tobacco Use: Yes Smoking Status (MU): Light Every Day Tobacco Smoker Type: eCigarettes Amount Used/How Often: e cigarette- 1 regular cigarette Length of Time of Smoking/Using Tobacco: Since Age 17 Have You Smoked in the Last Year: Yes - e cigarette Review of Systems Positive: Palpitations - intermittent, Chest Pain - intermittent, short episodes Positive: Shortness Of Breath - with exertion including regular ambulation and speaking, some wheezing. Negative: Cough Positive: other - vaginal spotting (resolved) Negative: Edema Neurological: Other - dizziness Positive: Weakness - generalized, Numbness - and coldness in BLE All Other Systems Reviewed And Are Negative: Yes Physical Exam - Summary Physical Exam Summary: Appearance: Well-appearing, Well-nourished, lying in bed comfortably Skin: Warm, dry, no obvious rash Eyes: sclera anicteric, no conjunctival pallor ENT: mucous membranes moist, pharynx appears normal Neck: Supple, nontender Respiratory: Clear to auscultation, no signs of respiratory distress Cardiovascular: Normal S1, S2. No murmurs. Normal distal pulses in tibial and radial bilaterally. Abdomen: Soft, nontender, normal active bowel sounds present Musculoskeletal: Normal, Strength/ROM Intact Neurological: A&Ox3, awake and alert, mentation is normal, speech is fluent and appropriate Psychiatric: affect is normal, does not appear anxious or depressed - Physical Exam Triage Information Reviewed: Yes Vital Signs Reviewed: Yes Diagnostics - Vital Signs Vital Signs Temp Pulse Resp BP Pulse Ox 01/18/19 18:18 100.1 F 96 16 130/80 100 - Laboratory Lab Results: Lab Results 01/18/19 01/18/19 Range/Units 18:56 18:56 WBC 8.0 (3.5-10.8) 10^3/uL RBC 3.64 L (3.70-4.87) 10^6 /uL Hgb 11.4 L (12.0-16.0) g/dL Hct 33 L (35-47) % MCV 90 (80-97) fL MCH 31 (27-31) pg MCHC 35 (31-36) g/dL RDW 12 (10-15) % Plt Count 221 (150-450) 10^3/uL MPV 7.5 (7.4-10.4) fL Neut % (Auto) 67.3 % Lymph % (Auto) 25.5 % Alfalfa % (Auto) 6.0 % Eos % (Auto) 0.8 % Baso % (Auto) 0.4 % Absolute Neuts (auto) 5.4 (1.5-7.7) 10^3/ul Absolute Lymphs (auto) 2.0 (1.0-4.8) 10^3/ul Absolute Monos (auto) 0.5 (0-0.8) 10^3/ul Absolute Eos (auto) 0.1 (0-0.6) 10^3/ul Absolute Basos (auto) 0.0 (0-0.2) 10^3/ul Absolute Nucleated RBC 0.0 10^3/ul Nucleated RBC % 0.0 INR (Anticoag Therapy) 1.00 (0.82-1.09) Result Diagrams: 01/18/19 18:56 01/18/19 18:56 Lab Statement: Any lab studies that have been ordered have been reviewed, and results considered in the medical decision making process. - Radiology CXR Radiology Interpretation Completed By: ED Physician Summary of Radiographic Findings: No acute disease. ED physician has interpreted this report. Pending official report. - EKG 1933 Cardiac Rate: NL - 87 bpm EKG Rhythm: Sinus Rhythm Summary of EKG Findings: NSR at 87 bpm. Nml axis. No right heart strain. No STEMI. Re-Evaluation - Re-Evaluation First Eval Re-Evaluation Time: 20:55 Comment: We discussed results and discharge plan. Course/Dx - Course Course Of Treatment: Patient is a 33 y/o F with cc of worsening SOB, dizziness, and intermittent episodes of palpitations and associated mild diffuse CP over the last 4-5 weeks. She reports she is currently 6.5 weeks with twins, which she found out today through a sonogram. Over the past few weeks, she has noticed these symptoms, as well as generalized weakness and numbness and coldness in the BLE, which she hasnt had previously when with twins that resulted in a missed at 10.5 weeks, or with regular exercise that she partakes in 4-5 days a week. Symptoms are aggravated with exertion, regular ambulation, and speaking. Additionally had a few days of spotting without heavy bleeding. Denies edema or productive cough. Unsure of blood clot FHx secondary to adoption. Upon physical exam, the patient exhibits no acute abnormalities. Blood work without acute abnormalities. My pre test clinical gestalt is she is low risk for PE, in that there are no VS abnormalities, normal O2 sat, no chest pain (pleuritic or otherwise) and her dyspnea sounds fairly mild. Supporting tests include EKG that is normal with no sign of right heart strain, nl CXR, and neg d-dimer. I do not believe she needs further evaluation for PE as the likelihood in this scenario of clinically significant VTE is vanishingly small. Pt is provided reassurance and all questions were answered. - Diagnoses Provider Diagnoses: Dyspnea, Discharge - Sign-Out/Discharge Documenting (check all that apply): Patient Departure - Patient will be discharged home. Patient Received Moderate/Deep Sedation with Procedure: No - Discharge Plan Condition: Good Disposition: HOME Patient Education Materials: (ED) Referrals: Thaddeus Hung MD [Primary Care Provider] - 3 Days Additional Instructions: After evaluating you and getting some basic testing done, I think the likelihood of you having a blood clot in your lung is vanishingly small and I would not recommend any further workup at this time. If your symptoms change or worsen significantly, for example if you start to get pleuritic chest pain, the shortness of breath becomes much worse, or you have other new symptoms, we should see you back. I don't think those things are likely to happen though. - Billing Disposition and Condition Condition: GOOD Disposition: Home - Attestation Statements Document Initiated by Nando: Yes Documenting Scribe: Mesha Tsang Provider For Whom Nando is Documenting (Include Credential): Dr. Nasim Brock MD Scribe Attestation: I, melinda Prabhakared for Dr. Nasim Brock MD on 01/22/19 at 2256. Scribe Documentation Reviewed: Yes Provider Attestation: The documentation as recorded by the Mesha reece accurately reflects the service I personally performed and the decisions made by me, Dr. Nasim Brock MD Status of Scribsaurabh Document: Viewed
[2019-01-18 21:13] VITALS: BP 115/65
== END 2019-01-18 21:13 | disposition home or self-care (01) ==
LOC: ED 18:17
DX: O26.899 Other specified pregnancy related conditions, unspecified trimester (principal); R06.00 Dyspnea, unspecified; Z3A.00 Weeks of gestation of pregnancy not specified; J45.909 Unspecified asthma, uncomplicated; F17.290 Nicotine dependence, other tobacco product, uncomplicated; Z88.1 Allergy status to other antibiotic agents; Z88.8 Allergy status to other drugs, medicaments and biological substances
CPT/HCPCS: 36415; 71046; 80053; 84484; 85025; 85379; 85610; 93005; 99282